=== PATIENT | male | born 1945 | race Caucasian/White ===

== ENCOUNTER 2018-10-23 08:11 | Day surgery (SDC) | payer MEDICARE, OTHER, SELFPAY ==
--- NOTE | 2018-10-23 | PATH_ITS ---
[facility] Accession Number: [id number] . 01 Material submitted: . PART A: cecum - CECUM NEAR APPENDICEAL OPENING PART B: rectum - RECTUM NEAR THE ANUS . 02 Diagnosis: A. Biopsy, Polyp, Cecum Near Appendiceal Opening: Sessile serrated adenoma involving single biopsy fragment. . B. Biopsy, Rectum Near Anus: Hyperplastic polyp involving multiple biopsy fragments. MRV/10/26/2018 . 02 Electronically signed: . Syd Adams MD, Pathologist NPI- [id number] . 01 Gross description: . Part A: CECUM NEAR APPENDICEAL OPENING: Received in formalin are 4 fragment(s) of burgess, soft tissue measuring 0.1 x 0.1 x 0.1 cm to 0.3 x 0.2 x 0.2 cm which is entirely submitted and submitted entirely in 1 cassette(s) Part B: RECTUM NEAR THE ANUS: Received in formalin are multiple fragment(s) of burgess, soft tissue measuring 0.2 x 0.2 x 0.2 cm to 0.4 x 0.4 x 0.3 cm which is entirely submitted and submitted entirely in 1 cassette(s) /DMC /DMC . 02 Pathologist provided ICD-10: D12.0 . 02 CPT . 484673, 318322 Performed at: 01 [facility] [address], [place], [place] [id number] MD Sanjeev Keene MD Phone: [phone] Performed at: 02 [facility] [address] [place], [place] [id number] MD Jeannette Selby MD Phone: [phone]
[2018-10-23 08:58] VITALS: BP 146/80; PULSE 72; RESP 16; TEMP 36.8; O2SAT 97; BMI 33.5
[2018-10-23] MEDS: SODIUM CHLORIDE 0.9% 1,000 ML 200 ML IV (09:05)
--- NOTE | 2018-10-23 10:15 | PM.HP.1 ---
History of Present Illness Date Patient Seen: 10/23/18 Time Patient Seen: 10:03 Chief complaint: [id number] Narrative: Patient is a gentleman here for screening colonoscopy. Last exam was 5 years ago. He had a polyp removed at that time. Patient History Social History household members: spouse Family & Social History Social History: household members spouse Meds Home Medications Medication Instructions Recorded Confirmed Type benzonatate [Tessalon Perles] 100 mg PO TID #30 cap 07/27/17 Rx oseltamivir [Tamiflu] 75 mg PO BID #10 cap 07/27/17 Rx Allergies Allergy/AdvReac Type Severity Reaction Status Date / Time No Known Allergies Allergy Uncoded 10/08/17 12:53 Review of Systems Review of Systems All systems reviewed & are unremarkable except as noted in HPI and below Exam Vital Signs (past 8 hours): - 10/23/18 08:58 Temperature 98.3 F Pulse Rate 72 Respiratory Rate 16 Blood Pressure 146/80 H Pulse Oximetry 97 Oxygen Delivery Method Room Air Narrative Exam Narrative: Pleasant cooperative patient no apparent distress. Lungs are clear to auscultation. No rales or rhonchi. Heart regular rate and rhythm no murmur gallop. Abdomen is soft nontender without mass. No obvious hernias. Patient is alert and oriented x3. Assessment & Plan Assessment & Plan narrative: The patient for a screening colonoscopy. I have discussed the procedure with them. Risks of bleeding, perforation which would necessitate major operation, failure to find remove all lesions, the potential tattoo were all discussed. All questions were answered. They wished to proceed.
--- NOTE | 2018-10-23 10:18 | PM.PREOP ---
Pre-operative Note Interval Note History & Physical reviewed/Exam performed by Physician: Yes Changes to H&P: Yes H&P completed within 30 days and has changed as indicated here:: Take slips in a spring for hypertension and medication for elevated cholesterol ASA Class (for procedural sedation): II
[2018-10-23] MEDS: MIDAZOLAM 5 MG/5 ML VIAL IV (10:45)
[2018-10-23] MEDS: fentaNYL 250 MCG/5 ML INJ IV (10:46)
[2018-10-23 10:51] VITALS: BP 129/81; PULSE 80; RESP 20; TEMP 36.9; O2SAT 95
--- NOTE | 2018-10-23 10:53 | P.OP.ENDO_ITS ---
Operative Date/Time/Diagnoses Date of procedure: 10/23/18 Time of procedure: 10:47 Pre-op diagnosis: History of polyps. Last exam 5 years ago. Post-op diagnosis: same (Polyps. Diverticulosis.) Procedure & Clinicians Study performed: Colonoscopy with cold biopsy Same procedure as scheduled: Yes Indications: Screening Surgeon: Duran Zambrano Procedure Notes SCOAP/Timeout: Performed Procedure in detail: The patient was placed in the left lateral decubitus position and underwent IV sedation directed by the surgeon consisting of fentanyl and Versed. Digital exam was remarkable for increased sphincter tone. The scope was inserted and advanced through the rectum into the sigmoid, descending, transverse, and ascending colon. There were fairly significant number of diverticuli seen throughout the colon.. The cecum was reached identified by the ileocecal valve and the appendiceal opening. The ileocecal valve was successfully cannulated. The terminal ileum was normal in appearance. There were 2 very small polyps in the cecum. One was adjacent to in 1 was slightly into the opening of the appendix. The scope was then gradually brought out. One additional Polyp was found at about a cm inside the anal verge seen on retroflexed view. this was repeatedly biopsied and removed.. The scope was removed and the patient tolerated the procedure well. the prep was very good. Scope withdrawal time: 7.5 min excludes bx time Sedation minutes: 27 Findings: diverticulosis (Throughout the colon) and polyp (Cecum a near anal robert ge) Specimen(s): other (Polyps) Complications: none Recommendations: Colonscopy in 5 years Follow up: as needed Disposition: PACU
[2018-10-23 10:56] VITALS: BP 142/83; PULSE 80; RESP 14; O2SAT 95
[2018-10-23 10:58] VITALS: BP 142/83; PULSE 76; RESP 16; TEMP 36.6; O2SAT 95
[2018-10-23 11:20] VITALS: BP 133/76; PULSE 55; RESP 18; O2SAT 96
== END 2018-10-23 11:31 ==
LOC: ENDO 08:14
PROVIDERS: PCP Family Medicine; Visit Provider Specialist
PROC: 0DJD8ZZ Inspection of Lower Intestinal Tract, Via Natural or Artificial Opening Endoscopic (ICD-10-PCS; CPT 45378; principal; 2018-10-23 09:45)
DX: Z86.010 Personal history of colon polyps (principal); K57.30 Diverticulosis of large intestine without perforation or abscess without bleeding; D12.0 Benign neoplasm of cecum
CPT/HCPCS: 45380; 88305; 99152; 99153; J2250; J3010

== ENCOUNTER → 2019-07-20 11:12 | Outpatient (CLI) | payer MEDICARE, OTHER, SELFPAY ==
--- NOTE | 2019-07-20 | DI.RAD.S_ITS ---
PROCEDURE: XR HAND RT MIN 3V INDICATIONS: RIGHT HAND PAIN TECHNIQUE: 3 views of the hand(s) acquired. COMPARISON: None. FINDINGS: Bones: Small 1-2 mm osseous fragment seen at the base of the middle phalanx of the little finger, possibly cortical fracture fragment. No radiopaque foreign body is seen. Technically this finding age indeterminate. Background diffuse interphalangeal joint degeneration. First CMC and triscaphe joint degeneration Soft tissues: No suspicious soft tissue calcifications. IMPRESSION: Small osseous fragment seen at the PIP joint of the little finger (in the area of reported pain). This could represent small cortical fracture fragment. Confirmation with followup radiographs in 10 days to assess for healing sclerosis could be performed as clinically warranted. No radiopaque foreign body identified Dictated by: Alex Ruiz M.D. on 07/20/2019 at 13:21 Approved by: Alex Ruiz M.D. on 07/20/2019 at 13:24
== END ==
PROVIDERS: PCP Family Medicine; Visit Provider Family Medicine
DX: M79.641 Pain in right hand (principal)
CPT/HCPCS: 73130

== ENCOUNTER → 2019-08-03 11:06 | Outpatient (CLI) | payer MEDICARE, OTHER, SELFPAY ==
--- NOTE | 2019-08-03 | DI.RAD.S_ITS ---
PROCEDURE: XR HAND RT MIN 3V INDICATIONS: RT 5TH FINGER PAIN TECHNIQUE: 3 views of the hand(s) acquired. COMPARISON: [facility], CR, XR HAND RT MIN 3V, 07/20/2019, 11:18. FINDINGS: Bones: No previously unrecognized fractures or dislocations. The small apparent avulsion fragment at the lateral margin of the base of the fifth middle phalanx shows no evidence of osseous. Carpal bones are normally aligned. No suspicious bony lesions. Soft tissues: No suspicious soft tissue calcifications. IMPRESSION: The very small bone fragment abutting the fifth proximal interphalangeal joint laterally shows no osseous union to the adjacent articular margin. No new injury is identified. Dictated by: Franco Love M.D. on 08/03/2019 at 12:03 Approved by: Franco Love M.D. on 08/03/2019 at 12:05
== END ==
PROVIDERS: PCP Family Medicine; Referring Provider Family Medicine; Visit Provider Family Medicine
DX: M79.644 Pain in right finger(s) (principal)
CPT/HCPCS: 73130

== ENCOUNTER → 2019-10-08 12:30 | Outpatient (CLI) | payer MEDICARE, OTHER, SELFPAY ==
--- NOTE | 2019-10-08 | DI.MRI.S_ITS ---
PROCEDURE: MR STROKE Pre- and post-contrast brain MRI, non-contrast brain MR angiogram, pre- and postcontrast neck MR angiogram INDICATIONS: Dizziness and giddiness TECHNIQUE: Brain: Noncontrast axial T1 spin echo, axial T2 fast spin echo, sagittal and axial FLAIR, coronal T2 fast spin echo, axial gradient echo, axial diffusion and ADC through the brain. After the administration of contrast, axial 3D VIBE of the cranial vasculature and brain. Brain MRA: Non-contrast 3-D time of flight MR angiogram, with multiple vdzjtac-zdlhdbpqi-uliesqwghv (MIP) reformats performed. Neck MRA: Axial and sagittal TruFISP through the neck. Coronal dynamic MR angiogram during administration of contrast in the arterial and venous phases, with 3-dimenstional himlctp-baeyvypeb-nzdalrmqte (MIP) reformats constructed from subtraction images. COMPARISON: None. FINDINGS: Image quality: Excellent. BRAIN: CSF spaces: Ventricles are normal in size and shape. Basal cisterns are patent. No extra-axial fluid collections. Brain: No intracranial bleeds or mass effects. Benton-white matter interface is normal. Diffusion weighted images show no acute ischemic insults. Brainstem appears normal. Normal intravascular flow voids are present. No abnormal intracranial enhancement. Skull and face: Calvarial marrow signal is normal. Orbits appear normal. Sinuses: Sinuses and mastoids are clear. BRAIN MR ANGIOGRAM: Anterior circulation: Intracranial internal carotid arteries are normal in size and enhancement. The flow within the paired anterior cerebral arteries is normal and symmetric. The flow within the middle cerebral arteries is normal and symmetric. The anterior communicating artery is seen. No stenoses, occlusions, or aneurysms. Posterior circulation: The visualized portions of the vertebral arteries demonstrate normal caliber, and join to form a normal appearing basilar artery. The flow within the posterior cerebral arteries is normal and symmetric. No stenoses, occlusions, or aneurysms. NECK MR ANGIOGRAM: Motion artifacts in upper thorax. Carotids: Great vessels demonstrate a conventional anatomy as they arise from the aortic arch. The origins of the common carotid arteries appear patent. The calibers and courses of both common carotid arteries are normal. The bifurcation regions appear normal bilaterally. The internal carotid arteries demonstrate normal course. There is a saccular aneurysm in the distal left cervical internal carotid artery measuring 5 mm arising from the medial wall. The right internal carotid artery is normal in caliber. Posterior circulation: The origins of the vertebral arteries appear patent. More superior portions of both vertebral arteries demonstrate normal course and caliber, and join to form a normal appearing basilar artery. Miscellaneous: Subclavian arteries appear patent. Pre-contrast images through the neck show no soft tissue abnormalities. IMPRESSION: BRAIN MRI: 1. No acute intracranial abnormalities. BRAIN MR ANGIOGRAM: No high-grade stenosis or occlusion in anterior or posterior circulations. NECK MR ANGIOGRAM: 1. No high-grade stenosis or occlusion in cervical carotid arteries or vertebral arteries. 2. 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 Dictated by: Augustin Eason M.D. on 10/08/2019 at 14:11 Approved by: Augustin Eason M.D. on 10/08/2019 at 15:10
--- NOTE | 2019-10-08 | DI.RAD.S_ITS ---
PROCEDURE: XR EYE FOREIGN BODY LT INDICATIONS: PRE MRI SCREEN TECHNIQUE: A single view of the orbits was acquired. COMPARISON: None. FINDINGS: Soft tissues: No metallic foreign bodies are visualized around the orbits. Bones: Bony structures appear unremarkable. Visualized sinuses appear clear. IMPRESSION: No radiopaque foreign body is seen in bilateral orbits. Dictated by: Terrance Melvin M.D. on 10/08/2019 at 13:04 Approved by: Terrance Melvin M.D. on 10/08/2019 at 13:05
== END ==
PROVIDERS: PCP Family Medicine; Referring Provider Family Medicine; Visit Provider Family Medicine
DX: I67.1 Cerebral aneurysm, nonruptured (principal); R42 Dizziness and giddiness; Z13.5 Encounter for screening for eye and ear disorders
CPT/HCPCS: 70030; 70548; 70553; A9579

== ENCOUNTER → 2019-12-20 11:38 | Outpatient (CLI) | payer MEDICARE, OTHER, SELFPAY ==
[2019-12-20 13:35] LABS: Blood Urea Nitrogen 14 mg/dL (9-20); Estimated Glomerular Filt Rate > 60.0 mL/min (>60)
== END ==
PROVIDERS: PCP Family Medicine; Referring Provider Family Medicine; Visit Provider Family Medicine
DX: R22.1 Localized swelling, mass and lump, neck (principal)
CPT/HCPCS: 36415; 82565; 84520

== ENCOUNTER → 2019-12-21 14:06 | Outpatient (CLI) | payer MEDICARE, OTHER, SELFPAY ==
--- NOTE | 2019-12-21 | DI.CT.S_ITS ---
PROCEDURE: CT SOFT TISSUE NECK W CON INDICATIONS: Localized swelling, mass and lump, neck TECHNIQUE: After the administration of intravenous contrast, 3.0 mm axial sections acquired from the sella to the aortic arch. Additional oblique axial 3.0 mm sections acquired through the pharynx. 3 mm thick coronal and sagittal reformats were generated. For radiation dose reduction, the following was used: automated exposure control. COMPARISON: None. FINDINGS: Image quality: Excellent. Lymph nodes: Scrutiny is given to the area of clinical concern as marked dilatation involving the right lower neck laterally, as on series 2 image 53. At this site, there is a mildly prominent lymph node seen, measuring 14 x 11 mm. Portal and prominent lymph nodes are seen elsewhere within the neck. Vessels: Visualized vasculature appears patent. Neck spaces: The oropharynx, nasopharynx, and pharynx demonstrate no mucosal lesions. The vocal cords, false vocal cords, pyriform sinuses, epiglottis, vallecula, and tongue base all appear normal. Extramucosal spaces appear unremarkable. Glands: The parotid and submandibular glands appear normal. Thyroid gland is prominent and heterogeneous. Miscellaneous: Visualized brain and orbits appear normal. Lung apices appear clear. Superficial soft tissues appear normal. Bones: No suspicious bony lesions. Visualized sinuses and mastoids appear unremarkable. Relatively prominent lower cervical spine degenerative changes are seen, with moderate to severe disc space narrowing at C5-C6 and C6. Bridging anterior osteophytes are seen at C5-T1. IMPRESSION: There is a mildly enlarged lymph node seen at the area of clinical concern. As clinically appropriate, please consider an ultrasound guided percutaneous biopsy. No primary masses are detected. A heterogeneous thyroid is seen. If clinically appropriate, please consider a followup thyroid ultrasound for further evaluation. Cervical spine degenerative changes are seen. Dictated by: Patrick Polanco M.D. on 12/21/2019 at 14:02 Approved by: Patrick Polanco M.D. on 12/21/2019 at 14:06
== END ==
PROVIDERS: PCP Family Medicine; Referring Provider Family Medicine; Visit Provider Family Medicine
DX: R59.0 Localized enlarged lymph nodes (principal); M47.812 Spondylosis without myelopathy or radiculopathy, cervical region
CPT/HCPCS: 70491

== ENCOUNTER → 2019-12-24 09:39 | Outpatient (CLI) | payer MEDICARE, OTHER, SELFPAY ==
--- NOTE | 2019-12-24 | DI.US.S_ITS ---
PROCEDURE: US THYROID INDICATIONS: NODULE TECHNIQUE: Real-time scanning was performed of the thyroid gland, with image documentation. COMPARISON: [facility], CT, CT SOFT TISSUE NECK W CON, 12/21/2019, 14:13. [facility], US, THYROID, 08/04/2015, 8:38. FINDINGS: The thyroid is enlarged and demonstrates generalized heterogeneity. Right: Thyroid lobe measures 8.3 x 2.3 x 3.5 cm. Left: Thyroid lobe measures 7.9 x 3 x 3.8 cm. Isthmus: 7 mm thick. Nodule number: 1 Location: Right lateral superior/mid Size: 1 x 0.8 x 0.7 cm, previously measuring 0.8 x 0.8 x 0.9 cm. Composition: Predominantly cystic Echogenicity: Hypoechoic Shape: wider than tall. Margins: Smooth Echogenic foci: None Total points: 3 ACR TI-RADS category: 3 Nodule number: 2 Location: Right lateral mid/inferior Size: 2.4 x 0.9 x 2.4 cm, previously measuring 1.2 x 1.2 x 1.5 cm. Composition: Predominantly solid Echogenicity: Hypoechoic Shape: wider than tall. Margins: Smooth Echogenic foci: None Total points: 4 ACR TI-RADS category: 4 Nodule number: 3 Location: Right anterior Size: 1.9 x 1.2 x 1.9 cm, not previously identified. Composition: Predominantly solid Echogenicity: Hypoechoic Shape: wider than tall. Margins: Smooth Echogenic foci: None Total points: 4 ACR TI-RADS category: 4 Nodule number: 4 Location: Left superior/medial Size: 1.3 x 0.7 x 1.6 cm, not previously identified Composition: Predominantly solid Echogenicity: Isoechoic Shape: wider than tall. Margins: Smooth Echogenic foci: None Total points: 3 ACR TI-RADS category: 3 IMPRESSION: The thyroid is enlarged and demonstrates a generalized heterogeneous appearance. By published criteria, ultrasound-guided biopsy would be recommended for the 2 largest nodules within the right thyroid. ACR TI-RADS definitions and recommendations: TI-RADS 1 (benign): 0 points. FNA not needed. TI-RADS 2 (not suspicious): 2 points. FNA not needed. TI-RADS 3 (mildly suspicious): 3 points. * FNA if 2.5 cm or larger, follow up if 1.5 cm or larger (at 1, 3, and 5 years). TI-RADS 4 (moderately suspicious): 4-6 points. * FNA if 1.5 cm or larger, follow up if 1 cm or larger (at 1, 2, 3, and 5 years). TI-RADS 5 (highly suspicious): 7 points or more. * FNA if 1 cm or larger, follow up if 0.5 cm or larger (every year for 5 years). Dictated by: Patrick Polanco M.D. on 12/24/2019 at 10:34 Approved by: Patrick Polanco M.D. on 12/24/2019 at 10:40
== END ==
PROVIDERS: PCP Family Medicine; Referring Provider Family Medicine; Visit Provider Family Medicine
DX: E04.2 Nontoxic multinodular goiter (principal)
CPT/HCPCS: 76536

== ENCOUNTER → 2020-02-11 12:34 | Outpatient (CLI) | payer MEDICARE, OTHER, SELFPAY ==
--- NOTE | 2020-02-11 | PATH_ITS ---
Note [facility] Accession Number: [id number] TESTS RESULT FLAG UNITS REF RANGE LAB Clinician Provided Cytology Information No. of containers..02 Previously Prepared Cytology Slide 35 Unknown Storage/container code(s) 01 RIGHT THYROID NODULE DIAGNOSIS: 01 RIGHT THYROID NODULE, FINE NEEDLE ASPIRATION. NEGATIVE FOR MALIGNANT CELLS. ADEQUATE FOR EVALUATION. FOLLICULAR GROUPS ARE PRESENT. BENIGN FOLLICULAR (GOITEROUS) NODULE ([place] CATEGORY II), SEE COMMENT. COMMENT: MICROSCOPIC EXAMINATION REVEALS A MILDLY CELLULAR ASPIRATE, COMPOSED OF COLLOID, FOLLICULAR GROUPS WITHOUT SIGNIFICANT CYTOLOGIC OR ARCHITECTURAL ATYPIA, AND BACKGROUND MACROPHAGES. THESE FINDINGS SUPPORT A BENIGN FOLLICULAR (GOITEROUS) NODULE. CORRELATION WITH CLINICAL AND RADIOGRAPHIC FINDINGS IS RECOMMENDED. ACCORDING TO THE [place] REPORTING SYSTEM FOR THYROID CYTOPATHOLOGY, THE RISK OF MALIGNANCY IN THE CATEGORY BENIGN-CATEGORY II IS 0-3%; THEREFORE RECOMMEND CONTINUED ULTRASOUND SURVEILLANCE WITH REPEAT FNA IF THE NODULE SIGNIFICANTLY INCREASES IN SIZE. Pathologist ICD10: 01 E04.2 01 FINDINGS: The thyroid is enlarged and demonstrates generalized heterogeneity. Right: Thyroid lobe measures 8.3 x 2.3 x 3.5 cm. Left: Thyroid lobe measures 7.9 x 3 x 3.8 cm. Isthmus: 7 mm thick. Nodule number: 1 Location: Right lateral superior/mid Size: 1 x 0.8 x 0.7 cm, previously measuring 0.8 x 0.8 x 0.9 cm. Composition: Predominantly cystic Echogenicity: Hypoechoic Shape: wider than tall. Margins: Smooth Echogenic foci: None Total points: 3 ACR TI-RADS category: 3 Nodule number: 2 Location: Right lateral mid/inferior Size: 2.4 x 0.9 x 2.4 cm, previously measuring 1.2 x 1.2 x 1.5 cm. Composition: Predominantly solid Echogenicity: Hypoechoic Shape: wider than tall. Margins: Smooth Echogenic foci: None Total points: 4 ACR TI-RADS category: 4 Nodule number: 3 Location: Right anterior Size: 1.9 x 1.2 x 1.9 cm, not previously identified. Composition: Predominantly solid Echogenicity: Hypoechoic Shape: wider than tall. Margins: Smooth Echogenic foci: None Total points: 4 ACR TI-RADS category: 4 Nodule number: 4 Location: Left superior/medial Size: 1.3 x 0.7 x 1.6 cm, not previously identified Composition: Predominantly solid Echogenicity: Isoechoic Shape: wider than tall. Margins: Smooth Echogenic foci: None Total points: 3 ACR TI-RADS category: 3 IMPRESSION: The thyroid is enlarged and demonstrates a generalized heterogeneous appearance. By published criteria, ultrasound-guided biopsy would be recommended for the 2 largest nodules within the right thyroid. 01 Femrin Higuera MD, Pathologist NPI- [id number] Florencio Olson, Leaf Coverer ([facility]) 01 30 CC, PINK, CLEAR RECIEVED: IN CYTOLYT WITH 6 ALCOHOL FIXED AND 6 QUICK STAINED SLIDES ALSO 1 RNA VIAL WAS RECEIVED FOR FURTHER TESTING. /VDU 02/14/2020 0828 Local FLAG LEGEND: L-Low Normal,H-High Normal,LL-Alert Low,HH-Alert High <-Panic Low,>-Panic High,A-Abnormal,AA-Critical Abnormal Performed at: 01 =Z [facility] [address], [place] [address] Sanjeev Keene MD, Performed at: 01 [facility] [address], [place], [place] [id number] MD Sanjeev Keene MD Phone: [phone]
--- NOTE | 2020-02-11 | DI.US.S_ITS ---
PROCEDURE: US FINE NEEDLE ASPIRATION INDICATIONS: RT NODULE TECHNIQUE: The indications, alternatives, benefits, risks, and complications of the procedure were explained to the patient. Written informed consent was obtained and placed in the chart. The thyroid region was examined sonographically and a site was chosen for ultrasound guided percutaneous sampling. The skin was prepared and draped in the usual fashion, and anesthetized with 1% lidocaine infiltrated from the skin down to the thyroid gland. Multiple passes were then performed, with contents emptied into an appropriate pathology specimen container. A bandage was applied to the area of access at completion of the study. COMPARISON: [facility], US, US THYROID, 12/24/2019, 10:15. FINDINGS: Location(s) of lesion(s) sampled: Right inferior nodule (#2 on previous US report) [place]: 25 gauge hypodermic needles. Number of passes: 6 Medications: 1% lidocaine for local anaesthesia. Complications: None. IMPRESSION: Successful ultrasound-guided thyroid nodule fine needle aspiration of the right infeior noudle (#2). The cytology results are pending. Please see chart below for management recommendations based on cytology results. Note: Nodule #3 is too infeior (below the clavicle) to assess and ultrasound guidance (below the clavicle). Recommend continued ultrasound follow-up. [facility] [place] [facility] ReportingRecommendationsNon-diagnostic* Repeat US-guided FNA, with on-site cytology evaluation if possible. * Repeated non-diagnostic nodules without high suspicion US features: close observation vs surgical consult. * Consider surgery if nodule has high suspicion US features, grows >20% in 2 dimensions on followup, or patient has clinical risk factors for malignancy. Benign* If nodule has high suspicion US features: repeat US and FNA within 12 months. * If nodule has low to intermediate suspicion US features: repeat US at 12-24 months. If nodule grows (20% increase in at least 2 dimensions, with minimal increase of 2 mm or >50% change in volume), or development of new suspicious US features, then repeat FNA or continue followup. * If nodule has very low suspicion US features: followup US at >24 months. Atypia of undetermined significance, follicular lesion of undetermined significanceRepeat FNA, molecular testing, followup US, or surgical consult.Follicular neoplasm, suspicious for follicular neoplasmSurgical consult; also consider molecular testing. Suspicious for malignancySurgical consult.MalignantSurgical consult. Dictated by: Augustin Eason M.D. on 02/11/2020 at 14:33 Approved by: Augustin Eason M.D. on 02/11/2020 at 14:36
== END ==
PROVIDERS: PCP Family Medicine; Referring Provider Family Medicine; Visit Provider Family Medicine
DX: E04.2 Nontoxic multinodular goiter (principal)
CPT/HCPCS: 10005

== ENCOUNTER → 2021-05-16 09:14 | Outpatient (CLI) | payer MEDICARE, OTHER, SELFPAY ==
--- NOTE | 2021-05-16 | DI.US.S_ITS ---
PROCEDURE: US THYROID INDICATIONS: NONTOXIC MULTINODULAR GOITER TECHNIQUE: Real-time scanning was performed of the thyroid gland, with image documentation. COMPARISON: [facility], US, US THYROID, 12/24/2019, 10:15. FINDINGS: Right: Thyroid lobe measures 6.7 x 3.4 cm, and is diffusely heterogeneous in echotexture. Left: Thyroid lobe measures 6.4 x 3.2 x 2.0 cm, and is diffusely heterogeneous in echotexture. Isthmus: 9.0 mm thick. Nodule number: 1 Location: Right mid to superior Size: Unchanged 1.2 x 0.8 x 0.6 cm. Composition: Solid Echogenicity: Hypoechoic Shape: wider than tall. Margins: Smooth Echogenic foci: None Total points: 4 ACR TI-RADS category: Moderately suspicious Nodule number: 2 Location: Right mid Size: 1.0 x 0.9 x 0.7 cm. Composition: Predominantly cystic Echogenicity: Predominantly anechoic Shape: wider than tall. Margins: Smooth Echogenic foci: None Total points: 0 ACR TI-RADS category: Benign Nodule number: 3 Location: Right mid inferior Size: Unchanged 2.5 x 1.2 x 1.1 cm. Composition: Mixed cystic and solid Echogenicity: Heterogeneous Shape: wider than tall. Margins: Lobulated Echogenic foci: None Total points: 4 ACR TI-RADS category: Moderately suspicious Nodule number: 4 Location: Right inferior Size: Unchanged 2.1 x 1.1 x 0.9 cm. Composition: Mixed cystic and solid Echogenicity: Heterogeneous Shape: wider than tall. Margins: Smooth of Echogenic foci: Internal punctate echogenic foci Total points: 5 ACR TI-RADS category: Moderately suspicious Nodule number: 5 Location: Left superior Size: Unchanged 1.3 x 1.3 x 0.8 cm. Composition: Solid Echogenicity: Hypoechoic Shape: wider than tall. Margins: Smooth Echogenic foci: None Total points: 4 ACR TI-RADS category: Moderately suspicious IMPRESSION: New small right thyroid nodule; otherwise stable appearance of bilateral thyroid nodules. Recommend continued followup ultrasound as detailed below. ACR TI-RADS definitions and recommendations: TI-RADS 1 (benign): 0 points. FNA not needed. TI-RADS 2 (not suspicious): 2 points. FNA not needed. TI-RADS 3 (mildly suspicious): 3 points. * FNA if 2.5 cm or larger, follow up if 1.5 cm or larger (at 1, 3, and 5 years). TI-RADS 4 (moderately suspicious): 4-6 points. * FNA if 1.5 cm or larger, follow up if 1 cm or larger (at 1, 2, 3, and 5 years). TI-RADS 5 (highly suspicious): 7 points or more. * FNA if 1 cm or larger, follow up if 0.5 cm or larger (every year for 5 years). Dictated by: Carlos Arora [facility] Interpreted: Terrance Melvin MD on 05/17/2021 at 10:21 Transcribed by: MICHAEL on 05/17/2021 at 10:30 Approved by: Terrance Melvin M.D. on 05/17/2021 at 11:49
== END ==
PROVIDERS: PCP Family Medicine; Referring Provider Family Medicine; Visit Provider Family Medicine
DX: E04.2 Nontoxic multinodular goiter (principal)
CPT/HCPCS: 76536

== ENCOUNTER → 2021-05-30 13:10 | Outpatient (CLI) | payer MEDICARE, OTHER, SELFPAY ==
--- NOTE | 2021-05-30 13:11 | DI.MRI.S_ITS ---
PROCEDURE: MR FOOT RT WO CON INDICATIONS: Pain in right foot TECHNIQUE: Noncontrast sagittal T1 spin echo and T2 fast spin echo with fat saturation, long-axis T1 spin echo and T2 fast spin echo with fat saturation, short-axis T1 spin echo and T2 fast spin echo with fat saturation through the forefoot. COMPARISON: None. FINDINGS: Image quality: Excellent. Bones and joints: Mild midfoot and hindfoot joint osteoarthritic changes are seen. No fracture or dislocation. No suspicious intraosseous lesions. No osteochondral injury of talar dome. Well-defined plantar enthesophyte is noted with mild edema involving plantar aspect of calcaneus. No discrete fracture line is noted. Soft tissues: Mildly thickened posterior tibialis tendon is seen with small amount of fluid distending tendon sheath suggestive of low-grade tenosynovitis. Rest of the flexor tendons are intact. Extensor and peroneus tendons are intact. Deltoid ligament and spring ligament complex are grossly intact. Lateral ankle ligaments are grossly intact. Achilles tendon is intact. Thickened plantar fascia at its plantar calcaneal insertion is seen suggestive of low-grade plantar fasciitis. IMPRESSION: 1. Well-defined plantar calcaneal enthesophyte with thickened medial cord of plantar fascia at its calcaneal insertion consistent with low to moderate grade plantar fasciitis. 2. Achilles tendon is intact. Low-grade tenosynovitis involving posterior tibialis tendon. Rest of the ankle tendons are intact. 3. No fracture or dislocation. Mild midfoot and hindfoot joint osteoarthritis. Dictated by: Terrance Melvin M.D. on 05/30/2021 at 15:05 Approved by: Terrance Melvin M.D. on 05/30/2021 at 15:43
== END ==
PROVIDERS: PCP Family Medicine; Referring Provider Podiatrist; Visit Provider Podiatrist
DX: M19.071 Primary osteoarthritis, right ankle and foot (principal); M65.871 Other synovitis and tenosynovitis, right ankle and foot; M77.31 Calcaneal spur, right foot; M72.2 Plantar fascial fibromatosis; M79.671 Pain in right foot
CPT/HCPCS: 73718

== ENCOUNTER → 2022-01-14 11:42 | Outpatient (CLI) | payer MEDICARE, OTHER, SELFPAY ==
--- NOTE | 2022-01-14 11:45 | DI.RAD.S_ITS ---
PROCEDURE: XR LUMBAR SPINE 2-3V INDICATIONS: Radiculopathy, lumbar region TECHNIQUE: 3 views of the lumbar spine were acquired. COMPARISON: None. FINDINGS: Bones: 5 [id number] vertebrae are present. There is normal bony alignment. No vertebral body compression fractures. No suspicious bony lesions. Disc space narrowing and hypertrophic facet joints noted particularly in the lower lumbar spine Soft tissues: Overlying bowel gas pattern is normal. No suspicious soft tissue calcifications. 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 on 01/14/2022 at 18:26
== END ==
PROVIDERS: PCP Family Medicine; Referring Provider Family Medicine; Visit Provider Family Medicine
DX: M54.16 Radiculopathy, lumbar region (principal); M51.36 Other intervertebral disc degeneration, lumbar region; M47.816 Spondylosis without myelopathy or radiculopathy, lumbar region
CPT/HCPCS: 72100

== ENCOUNTER 2022-06-22 07:18 | Emergency (ER) | payer MEDICARE, OTHER, SELFPAY ==
[2022-06-22] VITALS (16 sets, daily range): BP systolic 122–159; BP diastolic 56–70; PULSE 51–76; RESP 15; TEMP 36.7; O2SAT 94–100; BMI 32.8
--- NOTE | 2022-06-22 08:10 | ED_ITS ---
HPI - URI/Sore Throat General Chief Complaint: Upper Respiratory Symptoms Stated Complaint: sore throat/sob Time Seen by Provider: 06/22/22 08:05 Source: patient and family Mode of arrival: Ambulatory Limitations: no limitations History of Present Illness HPI Narrative: This is a 77-year-old male with history of BPH. Patient comes with complaint of sore throat for 5 days, nasal congestion, nonproductive cough, patient complains of left ear pain as well, he has been afebrile, he is had a little bit of headache on the left side. He denies any chest pain or pressure he is felt a little short of breath, no nausea or vomiting, no diarrhea constipation, no urinary symptoms. Patient states he tried Tylenol at 11:00 a.m. last night without much change. 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 No known drug allergies. His spouse who is in the room has also started to have similar symptoms develop in the last 2 days. Related Data Previous Rx's Medication Instructions Recorded benzonatate 100 mg capsule 100 mg PO TID #30 caps 07/27/17 (Tessalon Perles) oseltamivir 75 mg capsule (Tamiflu) 75 mg PO BID #10 caps 07/27/17 Allergies Allergy/AdvReac Type Severity Reaction Status Date / Time No Known Drug Allergies Allergy Verified 10/23/18 10:47 Review of Systems Review of Systems ROS Unobtainable: All systems reviewed & are unremarkable except as noted in HPI and below Patient History Social History household members: spouse Smoking Status: Never smoker Smoking Status: Never smoker Exam Narrative Exam Narrative: GEN: well nourished, well appearing male, alert and oriented x 3, patient appears to be in mild distress. HEENT: Atraumatic, pupils are equal round reactive to light, extraocular movements are intact, nares are clear, TMs are retracted, clear with no fluid, there is no conjunctival pallor. Throat is clear without any exudates, erythema, there is no tonsillar enlargement or uvular deviation, mild submandibular lymphadenopathy. No swelling, full range of motion of the neck nontender to palpation. Patient is slightly hoarse, no difficulty swallowing secretions. HEART: Regular rate and rhythm without murmur, clicks, rubs. LUNGS:Lungs clear to auscultation, no wheezes, rales, crackles, chest moves symmetrically ABD:bowel sounds normal, soft, non-tender, no guarding, rebound, rigidity, no masses noted, no hepatosplenomegaly :No CVA tenderness MSCL: Non-tender, no muscle atrophy, muscles strength 5/5 upper and lower extremities, full range of motion, normal gait NEURO:CN 2-12 intact, sensation normal SKIN: No rash, erythema or other skin changes noted Initial Vital Signs Initial Vital Signs: Vital Signs Pulse Rate 74 06/22/22 07:26 Blood Pressure 149/67 H 06/22/22 07:26 Pulse Oximetry 98 06/22/22 07:26 Course Orders Ordered: ED Orders 06/22/22 08:00 Covid-19 + FLU A/B + RSV - PCR Stat Vital Signs Vital signs: Vital Signs - 8 hr 06/22/22 07:34 06/22/22 07:26 06/22/22 07:26 Temperature 98.0 F Pulse Rate 71 74 Respiratory Rate 15 Blood Pressure 149/67 H 149/67 H Pulse Oximetry 100 98 Oxygen Delivery Method Room Air 06/22/22 07:27 06/22/22 07:31 06/22/22 07:32 Temperature Pulse Rate 69 70 Respiratory Rate Blood Pressure 159/70 H Pulse Oximetry 98 98 Oxygen Delivery Method 06/22/22 07:56 06/22/22 08:00 06/22/22 08:01 Temperature Pulse Rate 63 76 Respiratory Rate Blood Pressure 122/56 L Pulse Oximetry 95 96 Oxygen Delivery Method 06/22/22 08:01 06/22/22 08:15 06/22/22 08:30 Temperature Pulse Rate 63 67 Respiratory Rate Blood Pressure 136/66 Pulse Oximetry 96 97 Oxygen Delivery Method 06/22/22 08:30 06/22/22 08:45 06/22/22 09:00 Temperature Pulse Rate 57 L 53 L Respiratory Rate Blood Pressure 134/69 Pulse Oximetry 95 94 Oxygen Delivery Method 06/22/22 09:00 06/22/22 09:15 06/22/22 09:30 Temperature Pulse Rate 58 L 55 L Respiratory Rate Blood Pressure 128/60 Pulse Oximetry 95 95 Oxygen Delivery Method 06/22/22 09:30 06/22/22 09:45 Temperature Pulse Rate 55 L 51 L Respiratory Rate Blood Pressure Pulse Oximetry 95 95 Oxygen Delivery Method MDM - URI/Sore Throat Lab Data Labs: Lab Results 06/22/22 Range/Units 08:00 SARS-CoV-2 (PCR) Negative (Negative) Influenza A (RT-PCR) Flu a positive H (NEGATIVE) Influenza B (RT-PCR) Flu b negative (NEGATIVE) RSV (PCR) Negative (Negative) MDM Narrative Medical decision making narrative: 77-year-old male does not meet center criteria for strep exam is not concerning for bacterial pharyngitis. Suspect upper respiratory viral illness, R SV/COVID/influenza swab shows positive for influenza A Discharge Plan Departure Patient Disposition: Home Clinical Impression: Influenza A Instructions: DI for Influenza -- Adult Activity Restrictions/Additional Instructions: Please follow-up for recheck in the next week if symptoms are not starting to improve. You are positive for influenza A, this is a viral illness that typically last a week to 10 days. You can take Tylenol and/or IV ibuprofen as needed for fevers or sore throat. You may use [id number] cough and cold medication. Please return for rapidly worsening symptoms, new chest pain, shortness of breath, vomiting, new swelling in extremities, swelling of your throat, stridor or high-pitched wheezing, difficulty swallowing her secretions or other new or concerning changes. Prescriptions: No Action oseltamivir [Tamiflu] 75 MG capsule 75 mg PO BID Qty: 10 0RF benzonatate [Tessalon Perles] 100 MG capsule 100 mg PO TID Qty: 30 0RF Referrals: Jose Hartman MD [Primary Care Provider] - Visit Report Forms: Patient Portal/API
[2022-06-22 08:56] LABS: Influenza A - CEPHEID Flu A POSITIVE (NEGATIVE); Influenza B - CEPHEID Flu B NEGATIVE (NEGATIVE); Respiratory Syncytial Virus Negative (Negative)
[2022-06-22 09:41] LABS: COVID-19 CEPHEID 4-PLEX PCR Negative (Negative)
== END 2022-06-22 10:04 | disposition home or self-care (01) ==
PROVIDERS: Emergency Provider Emergency Medicine; PCP Family Medicine
DX: J10.1 Influenza due to other identified influenza virus with other respiratory manifestations (principal); Z20.822 Contact with and (suspected) exposure to COVID-19
CPT/HCPCS: 0241U; 99282

== ENCOUNTER → 2022-06-28 11:31 | Outpatient (CLI) | payer MEDICARE, OTHER, SELFPAY ==
--- NOTE | 2022-06-28 | DI.CT.S_ITS ---
PROCEDURE: CT SOFT TISSUE NECK W CON INDICATIONS: Localized swelling, mass and lump, neck TECHNIQUE: After the administration of intravenous contrast, 3.0 mm axial sections acquired from the sella to the aortic arch. 3 mm thick coronal and sagittal reformats were generated. For radiation dose reduction, the following was used: automated exposure control. COMPARISON: [facility], CT, CT SOFT TISSUE NECK W CON, 12/21/2019, 14:13. FINDINGS: Skull Base: The visualized intracranial contents, skull, and orbits are unremarkable. Visualized paranasal sinuses are clear. Pharynx and Larynx: The nasopharyngeal airway is patent and midline. Parapharyngeal soft tissues including palatine tonsils and base of the tongue are normal. Retropharyngeal space unremarkable. Normal appearance of the false and true vocal cords. Muscles and Fascial Planes: Fascial planes are well maintained. No abscess or mass lesion. Lymph Nodes: Scattered deep cervical nonenlarged lymph nodes christianson similar to the prior Vasculature: Unremarkable. Submandibular and Parotid Glands: The left submandibular gland is slightly asymmetrically enlarged, there is minimal adjacent edema noted. Thyroid: Heterogenous enlarged thyroid is stable from prior Bones: No acute fracture. No osteolytic or blastic lesion is evident. Normal bone mineralization. Multilevel degenerative disc disease and arthropathy appears stable from the prior Lung Apices: The visualized lung apices are clear. Small through meter calcified granuloma noted in the left lung apex laterally, stable IMPRESSION: 1. Minimal asymmetric enlargement of the left submandibular gland could reflect sialoadenitis in the proper clinical setting 2. Stable chronic findings include scattered nonenlarged deep cervical lymph nodes, prominent bulky thyroid, degenerative disc disease and arthropathy Approved by: Kleber Harmon M.D. on 06/28/2022 at 13:33
== END ==
PROVIDERS: PCP Family Medicine; Referring Provider Family Medicine; Visit Provider Family Medicine
DX: R22.1 Localized swelling, mass and lump, neck (principal)
CPT/HCPCS: 70491; Q9967

== ENCOUNTER → 2022-09-02 09:08 | Outpatient (CLI) | payer MEDICARE, SELFPAY ==
--- NOTE | 2022-09-02 | DI.US.S_ITS ---
PROCEDURE: US ABD AORTA ANEURYSM SCREEN INDICATIONS: Cardiovascular screen;Nontoxic multinodular goiter TECHNIQUE: Real time scanning was performed of the aorta and iliac arteries, with image documentation. COMPARISON: None. FINDINGS: Aorta: Proximal aortic diameter measures 2.1 cm. Mid-aorta measures 1.5 cm. Distal aortic diameter is 1.4 cm. Iliac arteries: Right common iliac artery measures 1.0 cm. Left common iliac artery measures 1.1 cm. IMPRESSION: No abdominal aortic aneurys. Dictated by: Augustin Eason M.D. on 09/02/2022 at 12:43 Approved by: Augustin Eason M.D. on 09/02/2022 at 12:44
--- NOTE | 2022-09-02 | DI.NM.S_ITS ---
PROCEDURE: NM UPTAKE AND SCAN RADIOPHARMACEUTICAL: 370 ?Ci I-123 sodium iodide by mouth. INDICATIONS: Cardiovascular screen;Nontoxic multinodular goiter TECHNIQUE: I-123 sodium iodide was administered orally. Anterior neck images were obtained, and iodine uptake by the thyroid gland calculated using insurance underwriter sales's software. COMPARISON: [facility], CT, CT SOFT TISSUE NECK W CON, 06/28/2022, 12:11. FINDINGS: Morphology: The thyroid gland has normal morphology and uniform activity. No 'cold' or 'hot' thyroid nodules are identified. Uptake: 6-hour thyroid uptake is 11.0%; normal ranges are from 6-18%. 24-hour thyroid uptake is 24.3% ; normal ranges are from 10-30%. IMPRESSION: 1. Homogeneous thyroid uptake. No hot or cold thyroid nodules. 2. Normal 6-hour and 24-hour radioactive iodine uptake. Dictated by: Augustin Eason M.D. on 09/03/2022 at 10:39 Approved by: Augustin Eason M.D. on 09/03/2022 at 15:26
== END ==
PROVIDERS: PCP Family Medicine; Referring Provider Family Medicine; Visit Provider Family Medicine
DX: Z13.6 Encounter for screening for cardiovascular disorders (principal); E04.2 Nontoxic multinodular goiter
CPT/HCPCS: 76706; 78014; A9516

== ENCOUNTER → 2023-03-24 08:19 | Outpatient (CLI) | payer MEDICARE, SELFPAY ==
--- NOTE | 2023-03-24 | DI.US.S_ITS ---
PROCEDURE: US THYROID INDICATIONS: THYROID NODULE TECHNIQUE: Real-time scanning was performed of the thyroid gland, with image documentation. COMPARISON: [facility], US, US THYROID, 05/16/2021, 9:25. FINDINGS: Right: Thyroid lobe measures 8.4 x 3.7 x 3.0 cm, larger compared to the most recent prior exam, and is heterogeneous in echotexture. Left: Thyroid lobe measures 8.1 x 3.5 x 2.9 cm, also moderately increased in size, and is heterogeneous in echotexture. Isthmus: 9.3 mm thick. Nodule number: 1 Location: Right superior pole Size: 1.4 x 1.0 x 1.1 cm, previously 1.2 x 0.8 x 1.0 cm. Composition: Mixed cystic and solid Echogenicity: Heterogeneous Shape: wider than tall. Margins: Smooth Echogenic foci: No Total points: 3 ACR TI-RADS category: Mildly suspicious Nodule number: 2 Location: Right mid/lateral lobe no longer seen. This was previously sampled. Nodule number: 3 Location: right inferior pole, previously biopsied Size: 2.4 x 1.3 x 1.0 cm, previously 2.4 x 2.4 x 0.9 cm Composition: Predominantly solid Echogenicity: Hypoechoic Shape: wider than tall. Margins: Lobulated Echogenic foci: Present Total points: 4 ACR TI-RADS category: Moderately suspicious Nodule number: 4 Location: Right lateral inferior, no longer seen Nodule number: 5 Location: Left superior pole Size: 1.2 x 1.3 x 0.8 cm, previously 1.3 x 1.3 x 0.8 cm. Composition: Solid Echogenicity: Isoechoic Shape: wider than tall. Margins: Smooth Echogenic foci: No Total points: 3 ACR TI-RADS category: Mildly suspicious IMPRESSION: 1. Stable appearance of 3 nodules in the thyroid gland, 1 of which has been previously biopsied. 2. Resolution of previously seen cystic thyroid nodules. 3. Continue follow-up as detailed below. ACR TI-RADS definitions and recommendations: TI-RADS 1 (benign): 0 points. FNA not needed. TI-RADS 2 (not suspicious): 2 points. FNA not needed. TI-RADS 3 (mildly suspicious): 3 points. * FNA if 2.5 cm or larger, follow up if 1.5 cm or larger (at 1, 3, and 5 years). TI-RADS 4 (moderately suspicious): 4-6 points. * FNA if 1.5 cm or larger, follow up if 1 cm or larger (at 1, 2, 3, and 5 years). TI-RADS 5 (highly suspicious): 7 points or more. * FNA if 1 cm or larger, follow up if 0.5 cm or larger (every year for 5 years). Dictated by: Dorene Wang M.D. on 03/24/2023 at 12:46 Approved by: Droene Wang M.D. on 03/24/2023 at 12:58
== END ==
PROVIDERS: PCP Family Medicine; Referring Provider Family Medicine; Visit Provider Family Medicine
DX: E04.2 Nontoxic multinodular goiter (principal)
CPT/HCPCS: 76536

== ENCOUNTER 2023-11-11 07:21 | Day surgery (SDC) | payer MEDICARE, OTHER, SELFPAY ==
[2023-11-11] MEDS: LACTATED RINGERS 1,000 ML 42 ML IV (07:38)
[2023-11-11 07:44] VITALS: BP 150/80; PULSE 64; RESP 18; TEMP 36.7; O2SAT 97
--- NOTE | 2023-11-11 08:15 | P.HP_ITS ---
History of Present Illness History of Present Illness Date Patient Seen: 11/11/23 Time Patient Seen: 08:15 Chief complaint: SDC Narrative: 78-year-old man personal history of colonic polyps here for screening colonoscopy. Last colonoscopy 2018. Family history significant for colon cancer in his father and brother. No abdominal concerns today. PENDING SALE TO [facility] Family History (Updated 11/11/23 @ 08:16 by Zurdo Conrad MD) Father Cancer Brother Cancer Social History household members: spouse Smoking Status: Never smoker Meds Home Medications and Allergies Home Medications Medication Instructions Recorded Confirmed Type atorvastatin 10 mg tablet 10 mg PO DAILY 11/11/23 11/11/23 History dutasteride 0.5 mg capsule 0.5 mg PO DAILY 11/11/23 11/11/23 History lisinopril 30 mg tablet 30 mg PO DAILY blood pressure 11/11/23 11/11/23 History tamsulosin 0.4 mg capsule 0.4 mg PO DAILY 11/11/23 11/11/23 History Allergies Allergy/AdvReac Type Severity Reaction Status Date / Time No Known Drug Allergies Allergy Verified 11/11/23 07:40 Exam Vital Signs (past 8 hours): - 11/11/23 07:44 Temperature 98.0 F Pulse Rate 64 Respiratory Rate 18 Blood Pressure 150/80 H Pulse Oximetry 97 Oxygen Delivery Method Room Air Oxygen Delivery Method Room Air Narrative Exam Narrative: General adult man alert oriented no acute distress Chest nonlabored respiration Extremities warm well perfused Assessment & Plan Assessment & Plan narrative: The patient requires colorectal screening and colonoscopy is recommended. Technical details were discussed. Risks, benefits, alternatives explained. Risks including but not limited to myocardial infarction, aspiration, bleeding, pain, missed lesion, incomplete examination, need for further radiographic studies, intestinal injury, and need for major abdominal surgery were discussed. All questions were answered to their satisfaction, and they are in agreement with this plan.
[2023-11-11 08:38] VITALS: BP 129/105; PULSE 87; RESP 14; TEMP 36.3; O2SAT 97
--- NOTE | 2023-11-11 08:41 | P.OP.COLON_ITS ---
Operative Date/Time/Diagnoses Date of procedure: 11/11/23 Time of procedure: 08:42 Pre-op diagnosis: Family history of colon cancer Personal history of colonic polyps Procedure & Clinicians Study performed: Screening colonoscopy Same procedure as scheduled: Yes Indications: Personal history of colonic polyps Family history of intestinal malignancy in 2 first-degree relatives Surgeon: Zurdo Conrad Procedure Notes Procedure in detail: The history and physical was performed/updated and the patient is ASA class is 2. The procedure was discussed in detail with the patient. Potential risks complications including infection, bleeding, missed diagnosis, perforation, need for surgery, and were explained. Their questions were answered and informed consent was obtained. Patient was brought to the procedure room and placed standard monitoring equipment. The patient's vital signs were monitored continuously throughout the entire procedure. Prior to starting time-out was performed. The patient was placed in the left lateral recumbent position. Procedural sedation was administered by anesthesia. Examination began with a thorough inspection of the perianal area there was no evidence of fissures, fistulae, external hemorrhoids or cutaneous malignancy. The colonoscopy scope was then placed into the anal canal and was advanced to the cecum, which was identified by the ileocecal valve, the appendiceal orifice and the confluence of the taenia. The scope was then slowly withdrawn examining colon thoroughly in all directions, irrigating it of any residual stool. The scope was retroflexed within the rectum The patient tolerated the procedure well. They will be discharged once criteria are met. The prep was of fair quality. The withdrawl time was 6 minutes. FINDINGS * Extensive junior diverticulosis * No masses or polyps * Internal hemorrhoids Findings: divertiulosis Specimen(s): none sent Post-procedure Recommendations: Colonoscopy in 5 years and High fiber diet Disposition: same day surgery
[2023-11-11 08:43] VITALS: BP 112/58; PULSE 60; RESP 19; O2SAT 96
[2023-11-11 08:47] VITALS: BP 103/54; PULSE 64; RESP 15; O2SAT 95
[2023-11-11 08:55] VITALS: BP 115/64; PULSE 60; RESP 14; TEMP 36.4; O2SAT 98
== END 2023-11-11 09:14 | disposition home or self-care (01) ==
PROVIDERS: PCP Family Medicine; Referring Provider Surgery; Visit Provider Surgery
PROC: 0DJD8ZZ Inspection of Lower Intestinal Tract, Via Natural or Artificial Opening Endoscopic (ICD-10-PCS; CPT 45378; principal; 2023-11-11 08:15)
DX: Z12.11 Encounter for screening for malignant neoplasm of colon (principal); Z86.010 Personal history of colon polyps; Z80.0 Family history of malignant neoplasm of digestive organs; K57.30 Diverticulosis of large intestine without perforation or abscess without bleeding; K64.8 Other hemorrhoids
CPT/HCPCS: G0105; J2704

== ENCOUNTER 2024-03-01 09:38 | Emergency (ER) | payer MEDICARE, OTHER, SELFPAY ==
[2024-03-01] VITALS (19 sets, daily range): BP systolic 124–167; BP diastolic 59–75; PULSE 48–62; RESP 18–61; TEMP 36.7; O2SAT 93–98; BMI 32.8
--- NOTE | 2024-03-01 10:01 | EKG_ITS ---
[address] [id number], [place] [address] Test Date: 2024-03-01 Pat Name: Wayne Lopez Department: Room: Gender: Male Telehealth Director: GREGOR : 1945 Requested By: Order Number: [id number] Reading MD: Lawrence White MD Measurements Intervals [place] Rate: 53 P: 33 CA: 160 QRS: 1 QRSD: 98 T: 10 QT: 396 QTc: 371 Interpretive Statements Sinus bradycardia Electronically Signed On 03-01-2024 11:03:46 PDT by Lawrence White MD
--- NOTE | 2024-03-01 10:01 | DI.RAD.S_ITS ---
PROCEDURE: XR CHEST 1V INDICATIONS: Shortness of breath TECHNIQUE: One view of the chest was acquired. COMPARISON: None. FINDINGS: Overlying EKG leads limit evaluation. Surgical changes and devices: None. Lungs and pleura: Lungs are clear. No pleural effusions or pneumothorax. Mediastinum: Mediastinal contours appear normal. Heart size is normal. Bones and chest wall: No suspicious bony lesions. Overlying soft tissues appear unremarkable. IMPRESSION: No acute cardiopulmonary process. Dictated by: Jasper Huynh M.D. on 03/01/2024 at 9:16 Approved by: Jasper Huynh M.D. on 03/01/2024 at 9:26
[2024-03-01 10:36] LABS: Add Manual Diff / Slide Review NO; Basophils Absolute Auto 0 /uL (0-100); Basophils Percent Auto 0.3 % (0-2); Eosinophils Absolute Auto 0 /uL (0-450); Eosinophils Percent Auto 0.4 % (2-4); Hematocrit 39.4 % (41-53); Hemoglobin 13.6 g/dL (13.5-17.5); Lymphocytes Absolute Auto 1300 /uL (1100-4500); Lymphocytes Percent Auto 17.8 % (25-40); Mean Corpuscular HGB Conc 34.4 % (30-36); Mean Corpuscular Hemoglobin 30.5 PG (26-34); Mean Corpuscular Volume 88.6 fL (80-100); Monocytes Absolute Auto 500 /uL (0-900); Neutrophils Absolute Auto 5600 /uL (1500-7000); Neutrophils Percent Auto 74.5 % (50-75); Platelet Count 229 X10^3/uL (150-400); Red Blood Cell Count 4.45 X10^6/uL (4.5-5.9); White Blood Cell Count 7.5 X10^3/uL (4.5-11.0)
[2024-03-01 10:44] LABS: INR 0.9 (0.9-1.3); Prothrombin Time 10.3 SECONDS (9.4-12.5)
[2024-03-01 10:47] LABS: Alanine Aminotransferase 29 IU/L (<50); Albumin 4.4 g/dL (3.5-5.0); Albumin Globulin Ratio 1.4 (1.0-2.8); Alkaline Phosphatase 66 U/L (38-126); Aspartate Aminotransferase 29 IU/L (17-59); BUN Creatinine Ratio 28.4 (6-22); Bilirubin Total 0.8 mg/dL (0.2-1.3); Blood Urea Nitrogen 27 mg/dL (9-20); Calcium 9.8 mg/dL (8.4-10.2); Carbon Dioxide 19 mmol/L (22-32); Chloride 105 mmol/L (98-107); Estimated Glomerular Filt Rate > 60 mL/min (>60); Globulin 3.2 g/dL (1.7-4.1); Glucose 123 mg/dL (80-110); HEMOLYSIS < 15 (0-50); Lactate (Lactic Acid) 1.3 mmol/L (0.7-2.1); Potassium 4.4 mmol/L (3.4-5.1); Sodium 134 mmol/L (137-145); Total Protein 7.6 g/dL (6.3-8.2)
[2024-03-01 10:59] LABS: NT-proBNP (BNP-Adult 18+) 22 pg/mL (<450); Troponin I < 0.012 ng/mL (0.01-0.034)
--- NOTE | 2024-03-01 12:07 | ED_ITS ---
HPI - SOB/Dyspnea General Chief Complaint: Shortness of Breath/Dyspnea Stated Complaint: Light-Headed, Dizzy, SoB on Exertion Time Seen by Provider: 03/01/24 12:07 Source: patient Mode of arrival: Ambulatory Limitations: no limitations History of Present Illness HPI Narrative: 78-year-old history of hypertension dyslipidemia, BPH presents with complaint of increasing lightheadedness and dizziness for the past 2 months as well as shortness of breath that has progressed over the past 2 or 3 days. Patient states started noticing some changes about 2 months ago. He has a metal artifact was at a art show in [place] was sitting up and got very lightheaded and felt like he might pass out. Patient states no vertigo symptoms or lift the room is spinning. He states he will feel little short of breath or like he is having to breathe fast. Denies any headaches with these episodes denies any chest pain, he has not passed out but feels like he is about 2. Typically when he is upright or walking has when he has symptoms, sometimes will have some mild symptoms seated but feels fine when he is lying flat. He has got diaphoretic before with these episodes. No swelling of extremities. Has felt a little nauseated but no vomiting. States had some loose stools today no hematochezia or melena. No abdominal back or flank pain. Patient notes over the past 3 days he has been increasingly short of breath as well as lightheaded. Patient takes medication for blood pressure, prostate and cholesterol. 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 No known drug allergies. No tobacco, drinks alcohol once monthly, no recreational drugs. Primary care is Dr. Hartman. Denies any prior cardiology evaluations or stress test. Related Data Home Medications Medication Instructions Recorded Confirmed atorvastatin 10 mg tablet 10 mg PO DAILY 11/11/23 11/11/23 dutasteride 0.5 mg capsule 0.5 mg PO DAILY 11/11/23 11/11/23 lisinopril 30 mg tablet 30 mg PO DAILY blood pressure 11/11/23 11/11/23 tamsulosin 0.4 mg capsule 0.4 mg PO DAILY 11/11/23 11/11/23 Previous Rx's Medication Instructions Recorded furosemide 40 mg tablet (Lasix) 40 mg PO DAILY #3 tabs 03/01/24 Allergies Allergy/AdvReac Type Severity Reaction Status Date / Time No Known Drug Allergies Allergy Verified 03/01/24 10:00 Review of Systems Review of Systems ROS Unobtainable: All systems reviewed & are unremarkable except as noted in HPI and below Patient History Family History Father Cancer Brother Cancer Social History household members: spouse Smoking Status: Never smoker Smoking Status: Never smoker alcohol intake frequency: a few times a month Substance Use Type: does not use Exam Narrative Exam Narrative: GENERAL: Alert and oriented x three, male in mild distress. No diaphoresis. HEENT: Head normocephalic, atraumatic, EOMI, pupils reactive, face symmetric, moist mucous membranes NECK: Supple, full range of motion CARDIOVASCULAR: Regular rate and rhythm without murmurs, rubs or gallops. No JVD. No edema bilateral lower extremities. RESPIRATORY: Breath sounds equal bilaterally, no wheezes rales or rhonchi. No tachypnea accessory muscle use. ABDOMEN: Soft, nontender. Normoactive bowel sounds all 4 quadrants. No guarding or rebound, rigidity, no mass, no pulsatile mass or bruit : No CVA tenderness EXTREMITIES: Normal range of motion, no clubbing or edema. Neurovascularly intact NEUROLOGICAL: Cranial nerves II through XII grossly intact. Moving all extremities SKIN: Warm, dry, no petechiae, no rashes or lesions. Initial Vital Signs Initial Vital Signs: Vital Signs Pulse Rate 60 03/01/24 09:49 Respiratory Rate 22 03/01/24 09:49 Course Orders Ordered: ED Orders 03/01/24 10:01 XR chest 1V Stat EKG-12 Lead Stat Measure peak expiratory flow ONCE RT Consult Eval and Treat NOW 03/01/24 10:20 Complete Blood Count AUTO DIFF Stat Comprehensive Metabolic Panel Stat D Dimer Stat Lactate (Lactic Acid) Stat NT-proBNP (BNP-Adult 18+) Stat Prothrombin Time INR Stat TSH w/ Reflex to FT4 Stat Troponin I Stat 03/01/24 12:19 CT angio chest PE protocol Stat 03/01/24 12:35 Trop I [Troponin I] Stat Discontinued Medications Furosemide (Furosemide 40 Mg/4 Ml Vial) 40 mg IV NOW ONE Stop: 03/01/24 14:33 Last Admin: 03/01/24 14:39 Dose: 40 mg Documented By: MLM Vital Signs Vital signs: Vital Signs - 8 hr 03/01/24 09:49 03/01/24 09:51 03/01/24 09:51 Temperature Pulse Rate 60 62 Respiratory Rate 22 21 Blood Pressure 163/71 H Pulse Oximetry 97 Oxygen Delivery Method 03/01/24 09:53 03/01/24 10:00 03/01/24 10:00 Temperature 98.1 F Pulse Rate 61 55 L Respiratory Rate 18 26 H Blood Pressure 163/71 H 136/63 Pulse Oximetry 97 96 Oxygen Delivery Method Room Air 03/01/24 10:30 03/01/24 10:30 03/01/24 11:00 Temperature Pulse Rate 53 L Respiratory Rate 22 Blood Pressure 124/59 L 131/60 Pulse Oximetry 97 Oxygen Delivery Method 03/01/24 11:00 03/01/24 11:30 03/01/24 11:30 Temperature Pulse Rate 51 L 50 L Respiratory Rate 24 34 H Blood Pressure 127/60 Pulse Oximetry 96 96 Oxygen Delivery Method 03/01/24 11:40 03/01/24 11:40 03/01/24 12:00 Temperature Pulse Rate 54 L 48 L Respiratory Rate 26 H 21 Blood Pressure 156/70 H Pulse Oximetry 98 97 Oxygen Delivery Method 03/01/24 12:00 03/01/24 12:30 03/01/24 12:30 Temperature Pulse Rate 52 L Respiratory Rate 33 H Blood Pressure 132/63 148/65 H Pulse Oximetry 98 Oxygen Delivery Method 03/01/24 13:00 03/01/24 13:30 03/01/24 13:35 Temperature Pulse Rate 57 L 57 L 50 L Respiratory Rate 23 22 32 H Blood Pressure Pulse Oximetry 98 97 97 Oxygen Delivery Method 03/01/24 13:35 03/01/24 14:00 03/01/24 14:00 Temperature Pulse Rate 51 L Respiratory Rate 26 H Blood Pressure 141/69 H 142/69 H Pulse Oximetry 97 Oxygen Delivery Method 03/01/24 14:08 03/01/24 14:08 03/01/24 14:20 Temperature Pulse Rate 56 L Respiratory Rate 22 Blood Pressure 141/66 H 143/66 H Pulse Oximetry 95 Oxygen Delivery Method 03/01/24 14:20 03/01/24 14:30 03/01/24 14:30 Temperature Pulse Rate 50 L 54 L Respiratory Rate 18 19 Blood Pressure 131/64 Pulse Oximetry 97 96 Oxygen Delivery Method 03/01/24 15:04 03/01/24 15:05 03/01/24 15:05 Temperature Pulse Rate 58 L 56 L Respiratory Rate 61 H 24 Blood Pressure 167/75 H Pulse Oximetry 93 97 Oxygen Delivery Method MDM - SOB/Dyspnea Lab Data 03/01/24 10:20 03/01/24 10:20 Labs: Lab Results 03/01/24 03/01/24 Range/Units 10:20 12:35 WBC 7.5 (4.5-11.0) X10^3/uL RBC 4.45 L (4.5-5.9) X10^6/uL Hgb 13.6 (13.5-17.5) g/dL Hct 39.4 L (41-53) % MCV 88.6 (80-100) fL MCH 30.5 (26-34) PG MCHC 34.4 (30-36) % RDW 13.0 (11.6-14.8) % Plt Count 229 (150-400) X10^3/uL Neut % (Auto) 74.5 (50-75) % Lymph % (Auto) 17.8 L (25-40) % [place] % (Auto) 7.0 (3-14) % Eos % (Auto) 0.4 L (2-4) % Baso % (Auto) 0.3 (0-2) % Neut # (Auto) 5600 (7779-5991) /uL Lymph # (Auto) 1300 (7476-1444) /uL [place] # (Auto) 500 (0-900) /uL Eos # (Auto) 0 (0-450) /uL Baso # (Auto) 0 (0-100) /uL PT 10.3 (9.4-12.5) SECONDS INR 0.9 (0.9-1.3) D-Dimer 2914 H (<500) ng/ml Sodium 134 L (137-145) mmol/L Potassium 4.4 (3.4-5.1) mmol/L Chloride 105 (98-107) mmol/L Carbon Dioxide 19 L (22-32) mmol/L BUN 27 H (9-20) mg/dL Creatinine 0.95 (0.66-1.25) mg/dL Estimated GFR > 60 (>60) mL/min BUN/Creatinine Ratio 28.4 H (6-22) Glucose 123 H (80-110) mg/dL Lactate 1.3 (0.7-2.1) mmol/L Calcium 9.8 (8.4-10.2) mg/dL Total Bilirubin 0.8 (0.2-1.3) mg/dL AST 29 (17-59) IU/L ALT 29 (<50) IU/L Alkaline Phosphatase 66 (38-126) U/L Troponin I < 0.012 < 0.012 (0.01-0.034) ng/mL NT-Pro-B Natriuret Pep 22 (<450) pg/mL Total Protein 7.6 (6.3-8.2) g/dL Albumin 4.4 (3.5-5.0) g/dL Globulin 3.2 (1.7-4.1) g/dL Albumin/Globulin Ratio 1.4 (1.0-2.8) TSH 0.34 L (0.47-4.68) uIU/mL Free T4 1.13 (0.78-2.19) ng/dL Imaging Data Chest x-ray: Radiologist's Impression: [place] [address] XRay Report Signed Patient: Wayne Lopez MR#: [id number] : 1945 Acct:[id number] Age/Sex: 78 / M Date of Service: 03/01/24 Loc: ED Accession Number: [id number] Procedure: XR chest 1V Ordering Provider: Renita Gonzales D.O. PROCEDURE: XR CHEST 1V INDICATIONS: Shortness of breath TECHNIQUE: One view of the chest was acquired. COMPARISON: None. FINDINGS: Overlying EKG leads limit evaluation. Surgical changes and devices: None. Lungs and pleura: Lungs are clear. No pleural effusions or pneumothorax. Mediastinum: Mediastinal contours appear normal. Heart size is normal. Bones and chest wall: No suspicious bony lesions. Overlying soft tissues appear unremarkable. IMPRESSION: No acute cardiopulmonary process. Dictated by: Jasper Huynh M.D. on 03/01/2024 at 9:16 Approved by: Jasper Huynh M.D. on 03/01/2024 at 9:26 CT scan - chest: Radiologist's Impression: Wayne Lopez?([place])??78??M??1945 ? Allergy/Adv: No Known Drug Allergies (More??) Close Chest CTA (Signed) Jasper Huynh - 03/01/24 Chest X-Ray (Signed) Jasper Huynh - 03/01/24 Thyroid Ultrasound (Signed) Dorene Wang - 03/24/23 Thyroid Uptake & Scan Nuc Medicine (Signed) Augustin Eason - 09/02/22 Abdominal Arterial Study US (Signed) Augustin Eason - 09/02/[address] (Signed) Kleber Harmon - 06/28/22 Lumbar Spine X-Ray (Signed) Kleber Harmon - 01/14/22 Foot MRI (Signed) Terrance Melvin - 05/30/21 Thyroid Ultrasound (Signed) Terrance Melvin - 05/16/21 Needle Aspiration Ultrasound (Signed) Yuriy Eason - 02/11/20 Thyroid Ultrasound (Signed) Patrick Polanco - 12/24/[address] (Signed) Patrick Polanco - 12/21/19 Eye X-Ray (Signed) Terrance Melvin - 10/08/19 Brain MRI (Signed) Yuriy Eason - 10/08/19 Hand X-Ray (Signed) Franco Love - 08/03/19 Hand X-Ray (Signed) Alex Ruiz - 07/20/19 Telemetry Strips 10/23/18 [place] [address] CT Scan Report Signed Patient: Wayne Lopez MR#: [id number] : 1945 Acct:[id number] Age/Sex: 78 / M Date of Service: 03/01/24 Loc: ED Accession Number: [id number] Procedure: CT angio chest PE protocol Ordering Provider: Renita Gonzales D.O. PROCEDURE: CT ANGIO CHEST PE PROTOCOL INDICATIONS: increased shortness of breath, lightheaded/near syncope TECHNIQUE: After the administration of intravenous contrast, 2 mm thick sections acquired from the pulmonary apices to the posterior costophrenic angles. 3-dimensional maximum intensity projection (MIP) coronal and sagittal reformats were then acquired through the thorax. For radiation dose reduction, the following was used: automated exposure control, adjustment of mA and/or kV according to patient size. COMPARISON: [facility], CR, XR CHEST 1V, 03/01/2024, 10:04. FINDINGS: Image quality: Diagnostic. Pulmonary arteries: Enhancement of the pulmonary artery is adequate. No filling defects in the pulmonary vasculature to the level of the proximal subsegmental pulmonary arteries. Main pulmonary artery is normal in caliber. Lower Neck: No enlarged lymph nodes. Thyroid: Normal thyroid gland is diffusely enlarged with no thyroid nodules which require follow-up. Axillae: No enlarged lymph nodes. Chest Wall: Unremarkable. Bones: No acute fractures. No aggressive appearing lytic or blastic osseous lesions. Thoracic ankylosis. Multilevel degenerative changes of the spine. Lungs and Pleura: No pneumothorax or pleural effusions. Lung volumes are low with dependent atelectasis. Right upper lobe solid, noncalcified pulmonary nodule measuring 2 mm (5/86). Left upper lobe solid, noncalcified pulmonary nodule measuring 2 mm (5/143). Left tyler fissure solid pulmonary nodule versus lymph node measuring 3 mm (5/139). Mild bilateral interlobular septal thickening with diffuse mosaic attenuation. Scattered subcentimeter calcified granulomas. Heart: Heart size is at the upper limits of. No pericardial effusion. Thoracic Vessels: No aortic aneurysm. Mediastinum and Stephanie: No enlarged lymph nodes. Esophagus: No wall thickening. Small hiatal hernia. Upper Abdomen: Partially visualized colonic diverticulosis, without diverticulitis. Left renal upper pole partially visualized hydronephrosis versus parapelvic cyst. IMPRESSION: 1. No acute pulmonary embolism. 2. Mild bilateral interlobular septal thickening with diffuse mosaic attenuation suggestive of early pulmonary edema. 3. Heart size is at the upper limits of normal. Consider ECHO for evaluation of a CHF exacerbation. 4. A few scattered solid, noncalcified pulmonary nodules measuring up to 3 mm. Per Fleischner guidelines, if patient is low risk, no additional follow-up needed. If patient is high risk, consider repeat CT chest in 12 months. 5. Left renal upper pole partially visualized hydronephrosis versus parapelvic cyst. If clinically warranted, recommend a renal ultrasound for further evaluation. 6. Thyroid gland is diffusely enlarged with no discrete nodule which requires ultrasound follow-up, within the visualized field of view. Correlate with thyroid function tests. Fleischner Society criteria for lung nodule followup. Nodule size (mm)Low-risk patientHigh-risk patient<=4No follow-up needed.Follow- up at 12 months; if no change, no further follow-up.>7-3Yssefe-ra CT at 12 months; if no change, no further follow-up needed.Initial follow-up CT at 6-12 months, then 18-24 months if no change.>6-8Initial follow-up CT at 6-12 months, then 18-24 months if no change.Initial follow-up CT at 3-6 months, then 9-12 months and 24 months if no change.>8Follow-up CT at 3,9 and 24 months or PET and/or biopsySame as for low-risk patientsNon-solid (ground-glass) or partly solid nodules may require longer follow-up to exclude indolent adenocarcinoma. Dictated by: Jasper Huynh M.D. on 03/01/2024 at 13:09 Approved by: Jasper Huynh M.D. on 03/01/2024 at 13:16 ECG Data Attestation: I personally reviewed and interpreted this ECG as follows: Interpretation: Sinus bradycardia rate of 53 HI 160 QRS of 98 QTC of 371, no acute ST elevation depression appreciated patient does not have any priors for comparison. EKG 2. Sinus bradycardia premature atrial complexes rate of 49 HI 162 QRS of 100 QTC 377, no acute ST elevation or depression. MDM Narrative Medical decision making narrative: Labs show white count of 7.5 hemoglobin of 13.6, hematocrit 39, platelets are 229. INR 0.9, sodium is 134 potassium 4.4 chloride 105 with a CO2 of 19 BUN 27 creatinine 0.95 with a glucose of 123 lactate 1.3 normal calcium negative LFTs troponins less than 0.012 with a BNP of 22. Dimer is elevated at 2914, CT angio was obtained. Repeat troponin is less than 0.012. Chest x-ray shows no acute change. EKG shows sinus bradycardia no acute ST elevation depression. Repeat EKG shows no acute changes. Patient states not a lot of travel but has traveled to other states for art shows. Describes some increasing shortness of breath and near syncope/lightheadedness. [place] appropriate to rule out pulmonary embolism and pericardial effusion. Ct Angio rule out PE, no pulmonary emboli, mild bilateral interlobular septal thickening with diffuse mosaic attenuation suggestive early pulmonary edema heart size upper limits of normal. Few scattered solid noncalcified pulmonary nodules measuring up to 3 mm no additional follow up if patient is low risk high-risk consider repeat chest CT in 12 months. Left renal upper pole partially visualized hydro versus parapelvic cyst, renal ultrasound as needed. Thyroid gland diffusely enlarged without discrete nodule. TSH is 0.34 free T4 is 1.13. Patient has been persistently bradycardic blood pressure has been overall appropriate but also possibility of significant bradycardia causing symptoms. Patient does have what appears to be some pulmonary edema slightly enlarged heart. Patient likely benefit from echo but is very stable here in the department ambulating throughout the department without issue. Discussed observation versus discharge home. Patient is open to either option. Did review CT findings and their entirety. He notes he has been on HCTZ 12.5 mg for the past couple of weeks started by Dr. Hartman. Spoke with Dr. White, covering for Dr. Hartman. We will help facilitate short term follow up and echo. Discharge Plan Departure Patient Disposition: Home Clinical Impression: Pulmonary nodule, Enlarged thyroid, CHF (congestive heart failure) Instructions: DI for Heart Failure Activity Restrictions/Additional Instructions: Follow up with Dr. Hartman, I spoke with the on-call physician to help facilitate follow-up. Please call tomorrow morning to set up a follow up appointment. Talk with Dr. Hartman about having an echo set up and possibly Holter monitor or ZIO patch. You do have TSH or thyroid test pending. Follow this up with Dr. Hartman. Your CT imaging did not show an enlarged thyroid, also showed some pulmonary nodules. Share this information with your primary care physician they can follow up with repeat imaging as needed. Continue your home medications as prescribed. Please take 1 tablet of Lasix daily for the next 3 days. You can take your next dose tomorrow. Prescription sent to [facility] in [place]. Please return for worsening symptoms increasing lightheadedness, any episodes of passing out, chest pain or pressure, increasing shortness of breath, persistent vomiting, new swelling of your extremities or other new or concerning changes. Prescriptions: New furosemide [Lasix] 40 mg tablet 40 mg PO DAILY Qty: 3 0RF No Action atorvastatin 10 mg tablet 10 mg PO DAILY tamsulosin 0.4 mg capsule 0.4 mg PO DAILY lisinopril 30 mg tablet 30 mg PO DAILY dutasteride 0.5 mg capsule 0.5 mg PO DAILY Referrals: Jose Hartman MD [Primary Care Provider] - Stand Alone Forms: Patient Portal/API
--- NOTE | 2024-03-01 12:19 | DI.CT.S_ITS ---
PROCEDURE: CT ANGIO CHEST PE PROTOCOL INDICATIONS: increased shortness of breath, lightheaded/near syncope TECHNIQUE: After the administration of intravenous contrast, 2 mm thick sections acquired from the pulmonary apices to the posterior costophrenic angles. 3-dimensional maximum intensity projection (MIP) coronal and sagittal reformats were then acquired through the thorax. For radiation dose reduction, the following was used: automated exposure control, adjustment of mA and/or kV according to patient size. COMPARISON: [facility], CR, XR CHEST 1V, 03/01/2024, 10:04. FINDINGS: Image quality: Diagnostic. Pulmonary arteries: Enhancement of the pulmonary artery is adequate. No filling defects in the pulmonary vasculature to the level of the proximal subsegmental pulmonary arteries. Main pulmonary artery is normal in caliber. Lower Neck: No enlarged lymph nodes. Thyroid: Normal thyroid gland is diffusely enlarged with no thyroid nodules which require follow-up. Axillae: No enlarged lymph nodes. Chest Wall: Unremarkable. Bones: No acute fractures. No aggressive appearing lytic or blastic osseous lesions. Thoracic ankylosis. Multilevel degenerative changes of the spine. Lungs and Pleura: No pneumothorax or pleural effusions. Lung volumes are low with dependent atelectasis. Right upper lobe solid, noncalcified pulmonary nodule measuring 2 mm (5/86). Left upper lobe solid, noncalcified pulmonary nodule measuring 2 mm (5/143). Left tyler fissure solid pulmonary nodule versus lymph node measuring 3 mm (5/139). Mild bilateral interlobular septal thickening with diffuse mosaic attenuation. Scattered subcentimeter calcified granulomas. Heart: Heart size is at the upper limits of. No pericardial effusion. Thoracic Vessels: No aortic aneurysm. Mediastinum and Stephanie: No enlarged lymph nodes. Esophagus: No wall thickening. Small hiatal hernia. Upper Abdomen: Partially visualized colonic diverticulosis, without diverticulitis. Left renal upper pole partially visualized hydronephrosis versus parapelvic cyst. IMPRESSION: 1. No acute pulmonary embolism. 2. Mild bilateral interlobular septal thickening with diffuse mosaic attenuation suggestive of early pulmonary edema. 3. Heart size is at the upper limits of normal. Consider ECHO for evaluation of a CHF exacerbation. 4. A few scattered solid, noncalcified pulmonary nodules measuring up to 3 mm. Per Fleischner guidelines, if patient is low risk, no additional follow-up needed. If patient is high risk, consider repeat CT chest in 12 months. 5. Left renal upper pole partially visualized hydronephrosis versus parapelvic cyst. If clinically warranted, recommend a renal ultrasound for further evaluation. 6. Thyroid gland is diffusely enlarged with no discrete nodule which requires ultrasound follow-up, within the visualized field of view. Correlate with thyroid function tests. Fleischner Society criteria for lung nodule followup. Nodule size (mm)Low-risk patientHigh-risk patient<=4No follow-up needed.Follow-up at 12 months; if no change, no further follow-up.>8-4Ymiuhp-ok CT at 12 months; if no change, no further follow-up needed.Initial follow-up CT at 6-12 months, then 18-24 months if no change.>6-8Initial follow-up CT at 6-12 months, then 18-24 months if no change.Initial follow-up CT at 3-6 months, then 9-12 months and 24 months if no change.>8Follow-up CT at 3,9 and 24 months or PET and/or biopsySame as for low-risk patientsNon-solid (ground-glass) or partly solid nodules may require longer follow-up to exclude indolent adenocarcinoma. Dictated by: Jasper Huynh M.D. on 03/01/2024 at 13:09 Approved by: Jasper Huynh M.D. on 03/01/2024 at 13:16
[2024-03-01 12:20] LABS: D Dimer 2914 ng/ml (<500)
--- NOTE | 2024-03-01 12:24 | EKG_ITS ---
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
[2024-03-01 13:06] LABS: Troponin I < 0.012 ng/mL (0.01-0.034)
[2024-03-01] MEDS: FUROSEMIDE 40 MG/4 ML VIAL IV (14:39)
[2024-03-01 15:29] LABS: TSH w/ Reflex to FT4 0.34 uIU/mL (0.47-4.68)
[2024-03-01 15:58] LABS: Free T4, Direct Thyroxine 1.13 ng/dL (0.78-2.19)
== END 2024-03-01 15:14 | disposition home or self-care (01) ==
PROVIDERS: Emergency Provider Emergency Medicine; PCP Family Medicine
DX: I50.9 Heart failure, unspecified (principal); R06.02 Shortness of breath; R00.1 Bradycardia, unspecified; E04.1 Nontoxic single thyroid nodule; R91.1 Solitary pulmonary nodule; Z79.899 Other long term (current) drug therapy
CPT/HCPCS: 36415; 71045; 71275; 80053; 83605; 83880; 84439; 84443; 84484; 85025; 85379; 85610; 93005; 93010; 96374; 99284; J1940; Q9967

== ENCOUNTER 2024-03-03 11:09 | Emergency (ER) | payer MEDICARE, OTHER, SELFPAY ==
[2024-03-03] VITALS (12 sets, daily range): BP systolic 112–163; BP diastolic 54–74; PULSE 59–83; RESP 16–35; TEMP 36.6; O2SAT 94–97
--- NOTE | 2024-03-03 11:25 | DI.RAD.S_ITS ---
PROCEDURE: XR CHEST 1V INDICATIONS: chest pain TECHNIQUE: One view of the chest was acquired. COMPARISON: [facility], CR, XR CHEST 1V, 03/01/2024, 10:04. FINDINGS: Surgical changes and devices: None. Lungs and pleura: Lungs are clear. No pleural effusions or pneumothorax. Mediastinum: Mediastinal contours appear normal. Heart size is normal. Bones and chest wall: No suspicious bony lesions. Overlying soft tissues appear unremarkable. IMPRESSION: No acute cardiopulmonary abnormality is seen. Dictated by: Tomas Barboza M.D. on 03/03/2024 at 11:38 Approved by: Tomas Barboza M.D. on 03/03/2024 at 11:39
--- NOTE | 2024-03-03 11:25 | EKG_ITS ---
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
--- NOTE | 2024-03-03 11:35 | ED.SYNCOPE ---
HPI - Syncope General Chief Complaint: Syncope Stated Complaint: near syncope Time Seen by Provider: 03/03/24 11:35 Source: patient and EMS Mode of arrival: EMS History of Present Illness HPI narrative: 78-year-old male with history of chronic low back pain, sudden hot tub 104?F this morning hoping it would help his back discomfort, for about 20 minutes, was then able to shower in standing, taking same Lasix dose daily regimen, then felt like he was going to pass out, no associated palpitations, no associated chest pain or shortness of breath, no shaking or seizure activity, he did not fall or have any trauma. No recent diarrhea, black stools, red stools. He has not feel nauseated. He has not had frequency of urination. No blood in urine. He was able to sit, transfer by EMS, feels better on arrival. Denies history of previous stroke or TIA symptoms. He did not have focal weakness to face arm or leg, nor tingling to face arm or leg Related Data Home Medications Medication Instructions Recorded Confirmed atorvastatin 10 mg tablet 10 mg PO DAILY 11/11/23 11/11/23 dutasteride 0.5 mg capsule 0.5 mg PO DAILY 11/11/23 11/11/23 lisinopril 30 mg tablet 30 mg PO DAILY blood pressure 11/11/23 11/11/23 tamsulosin 0.4 mg capsule 0.4 mg PO DAILY 11/11/23 11/11/23 Previous Rx's Medication Instructions Recorded furosemide 40 mg tablet (Lasix) 40 mg PO DAILY #3 tabs 03/01/24 Allergies Allergy/AdvReac Type Severity Reaction Status Date / Time No Known Drug Allergies Allergy Verified 03/03/24 11:34 Review of Systems Review of Systems Narrative: see HPI Patient History Family History Father Cancer Brother Cancer Social History household members: spouse Smoking Status: Never smoker Smoking Status: Never smoker alcohol intake frequency: a few times a month Substance Use Type: does not use Exam Narrative Exam Narrative: GENERAL: Well-developed patient, in mild distress. HEAD: Atraumatic. Normocephalic. EYES: Pupils equal round and reactive. Extraocular motions intact. No scleral icterus. No injection or drainage. ENT: Nose without bleeding, purulent drainage. Throat without erythema, tonsillar hypertrophy or exudate. Airway patent. NECK: Trachea midline. Non tender CARDIOVASCULAR: Regular rate and rhythm without murmurs, gallops, or rubs. RESPIRATORY: Clear to auscultation. Breath sounds equal bilaterally. No wheezes, rales, or rhonchi. GASTROINTESTINAL: Abdomen soft, non-tender, nondistended. EXTREMITIES: No edema or joint tenderness. BACK: Nontender without deformity or crepitance. No flank tenderness. NEURO: AOx3. SKIN: No rash or erythema of visible areas Initial Vital Signs Initial Vital Signs: Vital Signs Temperature 97.9 F 03/03/24 11:10 Pulse Rate 81 03/03/24 11:10 Respiratory Rate 16 03/03/24 11:10 Blood Pressure 163/74 H 03/03/24 11:10 Pulse Oximetry 97 03/03/24 11:10 Oxygen Delivery Method Room Air 03/03/24 11:10 Course Orders Ordered: ED Orders 03/03/24 11:20 Complete Blood Count AUTO DIFF Stat Comprehensive Metabolic Panel Stat Lipase Stat Magnesium Stat NT-proBNP (BNP-Adult 18+) Stat PTT Partial Thromboplastin Patrick Stat Prothrombin Time INR Stat Troponin & CK Cardiac Panel Stat 03/03/24 11:25 XR chest 1V Stat EKG-12 Lead Stat 03/03/24 14:00 Trop I [Troponin I] Stat Discontinued Medications Aspirin (Aspirin 81 Mg Chew Tab) 324 mg PO NOW ONE Stop: 03/03/24 11:26 Last Admin: 03/03/24 12:33 Dose: Not Given Documented By: RB Vital Signs Vital signs: Vital Signs - 8 hr 03/03/24 11:27 03/03/24 11:27 03/03/24 11:30 Pulse Rate 81 Respiratory Rate 35 H Blood Pressure 149/59 H 141/62 H Pulse Oximetry 95 03/03/24 11:30 03/03/24 12:00 03/03/24 12:00 Pulse Rate 70 79 Respiratory Rate 33 H 25 H Blood Pressure 126/74 Pulse Oximetry 96 95 03/03/24 12:12 03/03/24 12:12 03/03/24 12:30 Pulse Rate 72 Respiratory Rate Blood Pressure 125/58 L 115/57 L Pulse Oximetry 95 03/03/24 12:30 03/03/24 13:00 03/03/24 13:00 Pulse Rate 83 71 Respiratory Rate 25 H 26 H Blood Pressure 112/55 L Pulse Oximetry 94 95 03/03/24 13:30 03/03/24 13:30 03/03/24 14:00 Pulse Rate 72 Respiratory Rate 24 Blood Pressure 112/54 L 122/63 Pulse Oximetry 96 03/03/24 14:00 03/03/24 14:30 03/03/24 14:31 Pulse Rate 63 64 Respiratory Rate Blood Pressure 124/57 L Pulse Oximetry 95 97 03/03/24 14:31 Pulse Rate 59 L Respiratory Rate 21 Blood Pressure Pulse Oximetry 95 MDM - Syncope Lab Data 03/03/24 11:20 03/03/24 11:20 Labs: Lab Results 03/03/24 03/03/24 Range/Units 11:20 14:00 WBC 9.3 (4.5-11.0) X10^3/uL RBC 4.60 (4.5-5.9) X10^6/uL Hgb 14.4 (13.5-17.5) g/dL Hct 40.8 L (41-53) % MCV 88.8 (80-100) fL MCH 31.4 (26-34) PG MCHC 35.4 (30-36) % RDW 13.0 (11.6-14.8) % Plt Count 266 (150-400) X10^3/uL Neut % (Auto) 74.5 (50-75) % Lymph % (Auto) 17.0 L (25-40) % Vermillion % (Auto) 7.9 (3-14) % Eos % (Auto) 0.3 L (2-4) % Baso % (Auto) 0.3 (0-2) % Neut # (Auto) 6900 (2923-7949) /uL Lymph # (Auto) 1600 (6497-7489) /uL Vermillion # (Auto) 700 (0-900) /uL Eos # (Auto) 0 (0-450) /uL Baso # (Auto) 0 (0-100) /uL PT 11.2 (9.4-12.5) SECONDS INR 1.0 (0.9-1.3) APTT 28 (25.1-36.5) SECONDS Sodium 132 L (137-145) mmol/L Potassium 4.2 (3.4-5.1) mmol/L Chloride 103 (98-107) mmol/L Carbon Dioxide 19 L (22-32) mmol/L BUN 37 H (9-20) mg/dL Creatinine 0.91 (0.66-1.25) mg/dL Estimated GFR > 60 (>60) mL/min BUN/Creatinine Ratio 40.7 H (6-22) Glucose 147 H (80-110) mg/dL Calcium 9.7 (8.4-10.2) mg/dL Magnesium 1.8 (1.6-2.3) mg/dL Total Bilirubin 0.9 (0.2-1.3) mg/dL AST 26 (17-59) IU/L ALT 27 (<50) IU/L Alkaline Phosphatase 67 (38-126) U/L Total Creatine Kinase 65 (55-170) U/L Troponin I < 0.012 < 0.012 (0.01-0.034) ng/mL NT-Pro-B Natriuret Pep < 20 (<450) pg/mL Total Protein 7.7 (6.3-8.2) g/dL Albumin 4.5 (3.5-5.0) g/dL Globulin 3.2 (1.7-4.1) g/dL Albumin/Globulin Ratio 1.4 (1.0-2.8) Lipase 103 (23-300) U/L Imaging Data Chest x-ray: Radiologist's Impression: Close Chest X-Ray (Signed) Tomas Barboza - 03/03/24 Launch?Image [address] [address] XRay Report Signed Patient: Wayne Lopez MR#: [id number] : 1945 Acct:[id number] Age/Sex: 78 / M Date of Service: 03/03/24 Loc: ED Accession Number: [id number] Procedure: XR chest 1V Ordering Provider: Andre Plummer MD PROCEDURE: XR CHEST 1V INDICATIONS: chest pain TECHNIQUE: One view of the chest was acquired. COMPARISON: [facility], , XR CHEST 1V, 03/01/2024, 10:04. FINDINGS: Surgical changes and devices: None. Lungs and pleura: Lungs are clear. No pleural effusions or pneumothorax. Mediastinum: Mediastinal contours appear normal. Heart size is normal. Bones and chest wall: No suspicious bony lesions. Overlying soft tissues appear unremarkable. IMPRESSION: No acute cardiopulmonary abnormality is seen. Dictated by: Tomas Barboza M.D. on 03/03/2024 at 11:38 Approved by: Tomas Barboza M.D. on 03/03/2024 at 11:39 ECG Data Attestation: I personally reviewed and interpreted this ECG as follows: Interpretation: Normal sinus rhythm with rate of 65, no obvious ST segment elevation or depression changes. T-wave inversion lead 3. Upright T-waves lead 2. Flat T-waves appearance lead F. [place] 162, QRS 96, QTC 391. MDM Narrative Medical decision making narrative: 78-year-old male with near syncopal episode after having sat 20 minutes in home jacuzzi tub for his chronic low back pain, he was in standing position for shower, then subsequently felt like he might pass out. No associated cardiac or dysrhythmia or seizure-like symptoms. Screening EKG shows normal sinus rhythm, no obvious ST segment elevation changes. Initial troponin negative. Lab screening unremarkable. Patient feels better on arrival, continues to feel asymptomatic. We will repeat interval troponin. DDx consider vasodilation due to hot water immersion Jacuzzi tub, orthostatic hypotension, ACS, seizure, stroke, electrolyte disorder, anemia, other. Interval repeat troponin also negative. Patient remains asymptomatic. Advised to decrease time in Jacuzzi, or avoid Jacuzzi entirely, while he is still on vasoactive blood pressure medicines and diuretic medications. at bedside encouraging patient to avoid to oozy bathing entirely. Follow up with PCP advised next couple of days review symptoms, further workup as needed as an outpatient for now. Stable, improved, home with Critical Care Time Critical Care Time Total Critical Care Time: 31 Attestation: The high probability of a clinically significant, sudden or life threatening deterioration of the [cardiopulmonary] system(s) required my full and direct attention, intervention and personal management. The aggregate critical care time was [31] minutes. This time is in addition to time spent performing reported procedures but includes the following: [x] Data Review and interpretation [x] Patient assessment and monitoring of vital signs [x] Documentation [x] Medication orders and management Discharge Plan Departure Patient Disposition: Home Clinical Impression: Near syncope Activity Restrictions/Additional Instructions: Sensation of nearly passing out, after spending 20 minutes a new Jacuzzi tub for low back discomfort, although you were able to stand up and have a shower before he started feeling give might pass out. You do take multiple blood pressure related medication, and also diuretic medications. Reassuring triage vital signs. EKG and serial blood tests not suggestive of heart attack at this time. Electrolytes unremarkable. Symptoms all resolved prior to arrival, no recurrence of symptoms while in the emergency department. Tolerated ambulation well. Symptoms very suspicious for veno dilation due to Jacuzzi tub, in context of blood pressure medication and diuretic medication use. Consider avoidance of Jacuzzi tub, or at least perhaps only 5-10 minute intervals, with standing against something solid when leaving the tub. Follow up with your regular doctor for further testing as an outpatient for now. Return to this/nearest emergency department for any change worsening symptoms or any concerns prior Prescriptions: No Action atorvastatin 10 mg tablet 10 mg PO DAILY tamsulosin 0.4 mg capsule 0.4 mg PO DAILY lisinopril 30 mg tablet 30 mg PO DAILY dutasteride 0.5 mg capsule 0.5 mg PO DAILY furosemide [Lasix] 40 mg tablet 40 mg PO DAILY Qty: 3 0RF Referrals: Jose Hartman MD [Primary Care Provider] - Stand Alone Forms: Patient Portal/API
[2024-03-03 11:39] LABS: Add Manual Diff / Slide Review NO; Basophils Absolute Auto 0 /uL (0-100); Basophils Percent Auto 0.3 % (0-2); Eosinophils Absolute Auto 0 /uL (0-450); Eosinophils Percent Auto 0.3 % (2-4); Hematocrit 40.8 % (41-53); Hemoglobin 14.4 g/dL (13.5-17.5); Lymphocytes Absolute Auto 1600 /uL (1100-4500); Mean Corpuscular HGB Conc 35.4 % (30-36); Mean Corpuscular Hemoglobin 31.4 PG (26-34); Mean Corpuscular Volume 88.8 fL (80-100); Monocytes Absolute Auto 700 /uL (0-900); Monocytes Percent Auto 7.9 % (3-14); Neutrophils Absolute Auto 6900 /uL (1500-7000); Neutrophils Percent Auto 74.5 % (50-75); Platelet Count 266 X10^3/uL (150-400); White Blood Cell Count 9.3 X10^3/uL (4.5-11.0)
[2024-03-03 11:45] LABS: Prothrombin Time 11.2 SECONDS (9.4-12.5)
[2024-03-03 11:46] LABS: Alanine Aminotransferase 27 IU/L (<50); Albumin 4.5 g/dL (3.5-5.0); Albumin Globulin Ratio 1.4 (1.0-2.8); Alkaline Phosphatase 67 U/L (38-126); Aspartate Aminotransferase 26 IU/L (17-59); BUN Creatinine Ratio 40.7 (6-22); Bilirubin Total 0.9 mg/dL (0.2-1.3); Blood Urea Nitrogen 37 mg/dL (9-20); Calcium 9.7 mg/dL (8.4-10.2); Carbon Dioxide 19 mmol/L (22-32); Chloride 103 mmol/L (98-107); Creatine Kinase 65 U/L (55-170); Estimated Glomerular Filt Rate > 60 mL/min (>60); Globulin 3.2 g/dL (1.7-4.1); Glucose 147 mg/dL (80-110); HEMOLYSIS 21 (0-50); Lipase 103 U/L (23-300); Magnesium 1.8 mg/dL (1.6-2.3); Potassium 4.2 mmol/L (3.4-5.1); Sodium 132 mmol/L (137-145); Total Protein 7.7 g/dL (6.3-8.2)
[2024-03-03 11:47] LABS: PTT Partial Thromboplastin Tim 28 SECONDS (25.1-36.5)
[2024-03-03 11:58] LABS: NT-proBNP (BNP-Adult 18+) < 20 pg/mL (<450); Troponin I < 0.012 ng/mL (0.01-0.034)
[2024-03-03 14:31] LABS: Troponin I < 0.012 ng/mL (0.01-0.034)
== END 2024-03-03 14:52 | disposition home or self-care (01) ==
PROVIDERS: Emergency Provider Emergency Medicine; PCP Family Medicine
DX: R55 Syncope and collapse (principal); G89.29 Other chronic pain; R07.9 Chest pain, unspecified; I49.8 Other specified cardiac arrhythmias; Z79.01 Long term (current) use of anticoagulants
CPT/HCPCS: 71045; 80053; 82550; 83690; 83735; 83880; 84484; 85025; 85610; 85730; 93005; 93010; 99283; 99284

== ENCOUNTER → 2024-03-09 07:38 | Outpatient (CLI) | payer MEDICARE, OTHER, SELFPAY ==
--- NOTE | 2024-03-09 07:39 | DI.NM.S_ITS ---
PROCEDURE: NM EXERCISE TREADMILL NON NUC COMPARISON: None. INDICATIONS: BULLOCK FINDINGS: The patient exercised for 6 minutes and 32 seconds reaching 94% of maximum predicted heart rate. Appropriate BP response to exercise. 7.5METs, ELIECER -13%. No diagnostic ST changes, no angina, and ecotyp during exercise or recovery. IMPRESSION: Low risk, normal treadmill ECG only stress test with above average exercise tolerance (ELIECER -13%). Dictated by: Gladys Elizondo MD on 03/10/2024 at 15:17 Approved by: Gladys Elizondo MD on 03/10/2024 at 15:19
== END ==
PROVIDERS: PCP Family Medicine; Referring Provider Family Medicine; Visit Provider Family Medicine
DX: R06.09 Other forms of dyspnea (principal); I50.21 Acute systolic (congestive) heart failure
CPT/HCPCS: 93017

== ENCOUNTER → 2024-03-09 13:32 | Outpatient (CLI) | payer MEDICARE, OTHER, SELFPAY ==
--- NOTE | 2024-03-09 13:33 | DI.ECHO.S_ITS ---
[place] [facility]+ [facility] : : [address] : : [place] : : [id number] : : Phone: [phone] Echocardiogram Report + + :Name: BRENDAN MANRIQUE Study Date: 03/09/2024 Height: 70 in : :[facility] ReadingLocation: Weight: 235 lb : : Gender: Male BSA: 2.2 m2 : :: 1945 Age: 78 yrs BP: 135/71 mmHg: :Reason For Study: DYPSNEA ON EXERTION : :Ordering Physician: ELLEN : :NAA Performed By: Jairon Etienne : :Referring: NAA HUGHES : + + Interpretation Summary 1. The left ventricular contractility is normal. Estimate ejection fraction is greater than 55% with no segmental wall motion abnormalities. Mild concentric LVH. No diastolic dysfunction. 2. The right ventricle contractility is normal. 3. Moderate right ventricular enlargement present. Biatrial enlargement noted. The left ventricular cavity is of normal size. 4. Moderate pulmonic insufficiency. 5. Mild tricuspid regurgitation with estimated pulmonary systolic artery pressure of 32 mmHg. 6. No obvious intracardiac shunts. 7. No obvious intracardiac masses nor thrombi. 8. No hemodynamically significant pericardial effusion. 9. Low right-sided filling pressures. Conclusion: Normal biventricular systolic function with moderate right ventricular enlargement and moderate pulmonic insufficiency. Procedure: A two-dimensional transthoracic echocardiogram with color flow and Doppler was performed. The study quality was technically adequate. There is no prior echocardiogram noted for this patient. The heart rate ranged between 46-55 bpm during the study. The patient was in normal sinus rhythm during the exam. Left Ventricle: The left ventricle is normal in size. Left ventricular wall thickness is mildly increased. The ejection fraction is estimated to be 60- 65%. Right Ventricle: The right ventricle is moderately dilated. The right ventricular systolic function is normal. Atria: The left atrium is mildly dilated. The right atrium is mildly dilated. The interatrial septum grossly appears intact with no obvious evidence for an atrial septal defect. Mitral Valve: The mitral valve is normal. There is no mitral valve stenosis. There is trace mitral regurgitation. Aortic Valve: The aortic valve is trileaflet. There is no aortic valve stenosis. No aortic regurgitation is present. Tricuspid Valve: The tricuspid valve is normal. There is no tricuspid stenosis. There is mild tricuspid regurgitation. The right ventricular systolic pressure is estimated to be at least 31.8 mmHg based on an estimated right atrial pressure of 3 mm Hg. Pulmonic Valve: The pulmonic valve is not well visualized. There is no pulmonic valvular stenosis. There is moderate pulmonic regurgitation. Great Vessels: The aortic root is mildly dilated. The ascending aorta is mildly enlarged. The IVC is of normal diameter and collapses greater than 50% with a sniff. This suggests a low right atrial pressure of 3 mm Hg. Pericardium/ Pleura There is no pericardial effusion. There is no pleural effusion. MMode/2D Measurements & Calculations LVIDd: 5.1 cm LVOT diam: 2.2 cm LVIDs: 3.3 cm Ao root diam: 4.0 cm FS: 35.5 % asc Aorta Diam: 4.0 cm IVSd: 1.1 cm LVPWd: 1.1 cm LV saini. diameter/BSA (cm/m^2): 2.3 LV sys. diameter/BSA (cm/m^2): 1.5 LA A2 area: 26.2 cm2 RA long axis: 4.2 cm LA A4 area: 24.2 cm2 RA area: 17.9 cm2 LA length (vol): 6.7 cm RA vol: 64.7 ml LA vol: 80.1 ml RA : 28.9 ml/m2 LA vol index: 35.8 ml/m2 RVD1 (basal): 5.1 cm RVD2 (mid): 4.7 cm TAPSE: 3.3 cm Doppler Measurements & Calculations Ao V2 max: 202.6 cm/sec LVOT Max Silvano: 142.7 cm/sec Ao V2 mean: 133.3 cm/sec LV V1 max P.1 mmHg Ao max P.4 mmHg LV V1 VTI: 32.9 cm Ao mean P.3 mmHg SANIA(I,D): 3.0 cm2 Ao V2 VTI: 43.0 cm SANIA(V,D): 2.8 cm2 sev ratio: 0.77 SANIA indexed to BSA (cm^2/m^2): 1.3 MV E max silvano: 75.4 cm/sec TR max silvano: 268.5 cm/sec MV A max silvano: 80.4 cm/sec TR max P.8 mmHg MV E/A: 0.94 PA V2 max: 141.6 cm/sec Med Peak E' Silvano: 8.0 cm/sec PA V2 mean: 97.1 cm/sec E/E' med: 9.4 PA mean P.3 mmHg Lat Peak E' Silvano: 9.1 cm/sec PA pr(Accel): 39.6 mmHg E/E' lat: 8.3 E/e' average: 8.9 MV dec time: 0.24 sec SV(LVOT): 129.3 ml Reading Physician:
== END ==
PROVIDERS: PCP Family Medicine; Referring Provider Family Medicine; Visit Provider Family Medicine
DX: I07.1 Rheumatic tricuspid insufficiency (principal); I37.1 Nonrheumatic pulmonary valve insufficiency; I50.21 Acute systolic (congestive) heart failure; R06.09 Other forms of dyspnea; I77.810 Thoracic aortic ectasia; I77.89 Other specified disorders of arteries and arterioles
CPT/HCPCS: 93017; 93306

== ENCOUNTER → 2024-03-23 08:43 | Outpatient (CLI) | payer MEDICARE, OTHER, SELFPAY ==
--- NOTE | 2024-03-23 | DI.MRI.S_ITS ---
PROCEDURE: MR HEAD/BRAIN WO/W CON INDICATIONS: Labyrinthitis, bilateral TECHNIQUE: Noncontrast axial T1 spin echo, axial T2 fast spin echo, sagittal and axial FLAIR, coronal T2 fast spin echo, axial gradient echo, axial diffusion and ADC through the brain. After the administration of contrast, axial and coronal and sagittal T1 spin echo with fat saturation through the brain. COMPARISON: [facility], MR, MR STROKE, 10/08/2019, 12:55. [facility], CT, CT SOFT TISSUE NECK W CON, 06/28/2022, 12:11. FINDINGS: Image quality: Excellent. CSF spaces: Basal cisterns are patent. No extra-axial fluid collections. Ventricles are normal in size and shape. Brain: No midline shift. No intracranial bleeds or masses. No abnormal intracranial enhancement. There is cerebral volume loss for age. There is periventricular white matter chronic small vessel ischemic change. The brainstem appears normal. Diffusion-weighted images demonstrate no acute infarct. No chronic ischemic insults. Normal intravascular flow voids are present. Skull and face: Calvarial marrow is normal in signal. Orbits appear normal. Sinuses: Sinuses and mastoids appear clear. IMPRESSION: Unremarkable study, without concerning findings for labyrinthitis. No abnormal fluid can be seen within the mastoid air cells. No masses or abnormal enhancement can be seen. If further evaluation of the temporal bones is clinically desired, please consider a dedicated temporal bone CT for further evaluation. Dictated by: Patrick Polanco M.D. on 03/23/2024 at 10:45 Approved by: Patrick Polanco M.D. on 03/23/2024 at 10:49
== END ==
PROVIDERS: PCP Family Medicine; Referring Provider Family Medicine; Visit Provider Family Medicine
DX: H83.03 Labyrinthitis, bilateral (principal)
CPT/HCPCS: 70553; A9579

== ENCOUNTER → 2024-09-09 11:15 | Outpatient (CLI) | payer MEDICARE, OTHER, SELFPAY ==
--- NOTE | 2024-09-09 11:20 | DI.RAD.S_ITS ---
PROCEDURE: XR LUMBAR SPINE MIN 4V INDICATIONS: back pain TECHNIQUE: 5 views of the lumbar spine acquired, including flexion and extension views. COMPARISON: [facility], CR, XR LUMBAR SPINE 2-3V, 01/14/2022, 11:56. FINDINGS: Lumbar spine curvature and alignment: Normal. Bones: There are no osseous abnormalities. Disc spaces: Moderate L1-2, mild L2-3 and L3-4 and moderate L4-5 degenerative disc disease noted. There is moderate degenerative facet disease L4-5 and L5-S1. Soft tissues: No soft tissue swelling, calcification or mass. IMPRESSION: Degeneration-stable Dictated by: Lawrence Gil M.D. on 09/09/2024 at 13:07 Approved by: Lawrence Gil M.D. on 09/09/2024 at 13:08
== END ==
PROVIDERS: PCP Family Medicine; Referring Provider Family Medicine; Visit Provider Family Medicine
DX: M54.50 Low back pain, unspecified (principal); M51.369 Other intervertebral disc degeneration, lumbar region without mention of lumbar back pain or lower extremity pain
CPT/HCPCS: 72110

== ENCOUNTER 2025-05-03 20:54 | Emergency (ER) | payer MEDICARE, OTHER, SELFPAY ==
[2025-05-03] VITALS (8 sets, daily range): BP systolic 121–185; BP diastolic 70–97; PULSE 69–153; RESP 16–25; TEMP 36.8; O2SAT 94–96; BMI 32.8
--- NOTE | 2025-05-03 20:58 | DI.RAD.S_ITS ---
PROCEDURE: XR CHEST 1V
--- NOTE | 2025-05-03 21:03 | EKG_ITS ---
[facility]
[2025-05-03 21:09] LABS: Add Manual Diff / Slide Review NO; Hematocrit 43.9 % (41-53); Hemoglobin 15.0 g/dL (13.5-17.5); Lymphocytes Absolute Auto 2300 /uL (1100-4500); Mean Corpuscular HGB Conc 34.2 % (30-36); Mean Corpuscular Hemoglobin 29.9 PG (26-34); Mean Corpuscular Volume 87.6 fL (80-100); Platelet Count 223 X10^3/uL (150-400)
[2025-05-03 21:15] LABS: INR 0.9 (0.9-1.3); Prothrombin Time 10.4 SECONDS (9.4-12.5)
[2025-05-03 21:19] LABS: Alanine Aminotransferase 30 IU/L (<50); Albumin 4.7 g/dL (3.5-5.0); Albumin Globulin Ratio 1.4 (1.0-2.8); Alkaline Phosphatase 74 U/L (38-126); Blood Urea Nitrogen 26 mg/dL (9-20); Calcium 10.2 mg/dL (8.4-10.2); Carbon Dioxide 24 mmol/L (22-32); Chloride 105 mmol/L (98-107); Creatine Kinase 57 U/L (55-170); Estimated Glomerular Filt Rate > 60 mL/min (>60); Globulin 3.3 g/dL (1.7-4.1); Glucose 153 mg/dL (70-99); HEMOLYSIS 25 (0-50); Lipase 173 U/L (23-300); Magnesium 1.7 mg/dL (1.6-2.3); Potassium 3.8 mmol/L (3.4-5.1); Sodium 140 mmol/L (137-145); Total Protein 8.0 g/dL (6.3-8.2)
[2025-05-03 21:25] LABS: PTT Partial Thromboplastin Tim 27 SECONDS (25.1-36.5)
[2025-05-03 21:31] LABS: NT-proBNP (BNP-Adult 18+) 33 pg/mL (<450); Troponin I < 0.012 ng/mL (0.01-0.034)
--- NOTE | 2025-05-03 21:32 | EKG_ITS ---
[facility]
--- NOTE | 2025-05-03 22:15 | ED_ITS ---
HPI - Chest Pain
--- NOTE | 2025-05-03 22:15 | ED.CHESTPAIN ---
HPI - Chest Pain General Chief Complaint: Chest Pain Stated Complaint: Chest Pain Time Seen by Provider: 05/03/25 20:58 Source: patient and EMS Mode of arrival: EMS History of Present Illness HPI narrative: 79-year-old gentleman with a history of hyperlipidemia, congestive heart failure, hypertension, BPH who was sitting watching TV this evening and felt his his heart rate began to beat rapidly, he describes it is irregular at the time with some associated bilateral jaw pain. Had his next-door neighbor who is an EMT come over described him as pale and diaphoretic and recommended calling 911. He was not having any chest pain but arrives in the ER in atrial fibrillation with a rapid ventricular response. To his knowledge he has never had a previous episode of atrial fibrillation. He did take 325 mg of aspirin prior to arrival. No recent fevers, cough, chills, prior palpitations, abdominal pain, headache or nausea. Related Data Home Medications ?Medication ?Instructions ?Recorded ?Confirmed atorvastatin 10 mg tablet 10 mg PO DAILY 11/11/23 11/11/23 dutasteride 0.5 mg capsule 0.5 mg PO DAILY 11/11/23 11/11/23 lisinopril 30 mg tablet 30 mg PO DAILY blood pressure 11/11/23 11/11/23 tamsulosin 0.4 mg capsule 0.4 mg PO DAILY 11/11/23 11/11/23 Previous Rx's ?Medication ?Instructions ?Recorded furosemide 40 mg tablet (Lasix) 40 mg PO DAILY #3 tabs 03/01/24 apixaban 5 mg tablet 5 mg PO BID #60 tabs 05/03/25 Allergies Allergy/AdvReac Type Severity Reaction Status Date / Time No Known Drug Allergies Allergy Verified 05/03/25 20:58 Review of Systems Review of Systems Narrative: Pertinent positive and negative findings as per HPI Patient History Medical History (Updated 05/03/25 @ 22:37 by Kalee Isabel MD) BPH (benign prostatic hyperplasia) Hyperlipidemia CHF (congestive heart failure) Hypertension Family History Father Cancer Brother Cancer Social History household members: spouse Smoking Status: Never smoker Smoking Status: Never smoker alcohol intake frequency: a few times a month Exam Initial Vital Signs Initial Vital Signs: Vital Signs Pulse Rate 153 H 05/03/25 20:57 Respiratory Rate 25 H 05/03/25 20:57 Pulse Oximetry 96 05/03/25 20:57 General: Healthy appearing, in no acute distress. Able to give a complete and coherent history. Well-nourished well-developed HEENT: Moist mucous membranes, normal sclera with reactive pupils, Neck: No JVD, Respiratory: Lungs are clear to auscultation, no wheezing no rales no rhonchi. Full and symmetrical air movement Cardiac: Heart rate is in the 140-150 and irregular. I do not appreciate murmurs Abdomen: Soft, nontender, no rebound or guarding, no flank pain Skin: Warm and dry, no rashes Neurologic: Grossly neurologically intact with no obvious asymmetries or abnormalities Extremities: No trauma, well perfused Psych: Cooperative, appropriate insight and affect Course Orders Ordered: ED Orders 05/03/25 20:58 XR chest 1V Stat EKG-12 Lead Stat 05/03/25 21:00 Complete Blood Count AUTO DIFF Stat Comprehensive Metabolic Panel Stat Lipase Stat Magnesium Stat NT-proBNP (BNP-Adult 18+) Stat PTT Partial Thromboplastin Patrick Stat Prothrombin Time INR Stat Troponin & CK Cardiac Panel Stat 05/03/25 21:27 EKG-12 Lead Stat Discontinued Medications Aspirin (Aspirin 81 Mg Chew Tab) 324 mg PO NOW ONE Stop: 05/03/25 20:59 Vital Signs Vital signs: Vital Signs - 8 hr 05/03/25 20:57 05/03/25 20:58 05/03/25 21:00 Temperature 98.3 F Pulse Rate 153 H 153 H Respiratory Rate 25 H 18 Blood Pressure 183/82 H 185/97 H Pulse Oximetry 96 94 Oxygen Delivery Method Room Air 05/03/25 21:00 05/03/25 21:30 05/03/25 21:31 Temperature Pulse Rate 146 H 95 H Respiratory Rate 23 21 Blood Pressure 142/77 H Pulse Oximetry 96 95 Oxygen Delivery Method Room Air Room Air 05/03/25 21:31 05/03/25 22:00 05/03/25 22:00 Temperature Pulse Rate 93 H 69 Respiratory Rate 22 16 Blood Pressure 121/70 Pulse Oximetry 95 95 Oxygen Delivery Method Room Air Room Air MDM - Chest Pain Lab Data 05/03/25 21:00 05/03/25 21:00 Labs: Lab Results 05/03/25 Range/Units 21:00 WBC 7.4 (4.5-11.0) X10^3/uL RBC 5.01 (4.5-5.9) X10^6/uL Hgb 15.0 (13.5-17.5) g/dL Hct 43.9 (41-53) % MCV 87.6 (80-100) fL MCH 29.9 (26-34) PG MCHC 34.2 (30-36) % RDW 13.2 (11.6-14.8) % Plt Count 223 (150-400) X10^3/uL Neut % (Auto) 57.3 (50-75) % Lymph % (Auto) 30.8 (25-40) % [place] % (Auto) 10.3 (3-14) % Eos % (Auto) 1.1 L (2-4) % Baso % (Auto) 0.5 (0-2) % Neut # (Auto) 4200 (8588-8957) /uL Lymph # (Auto) 2300 (0666-5220) /uL [place] # (Auto) 800 (0-900) /uL Eos # (Auto) 100 (0-450) /uL Baso # (Auto) 0 (0-100) /uL PT 10.4 (9.4-12.5) SECONDS INR 0.9 (0.9-1.3) APTT 27 (25.1-36.5) SECONDS Sodium 140 (137-145) mmol/L Potassium 3.8 (3.4-5.1) mmol/L Chloride 105 (98-107) mmol/L Carbon Dioxide 24 (22-32) mmol/L BUN 26 H (9-20) mg/dL Creatinine 0.86 (0.66-1.25) mg/dL Estimated GFR > 60 (>60) mL/min BUN/Creatinine Ratio 30.2 H (6-22) Glucose 153 H (70-99) mg/dL Calcium 10.2 (8.4-10.2) mg/dL Magnesium 1.7 (1.6-2.3) mg/dL Total Bilirubin 0.5 (0.2-1.3) mg/dL AST 32 (17-59) IU/L ALT 30 (<50) IU/L Alkaline Phosphatase 74 (38-126) U/L Total Creatine Kinase 57 (55-170) U/L Troponin I < 0.012 (0.01-0.034) ng/mL NT-Pro-B Natriuret Pep 33 (<450) pg/mL Total Protein 8.0 (6.3-8.2) g/dL Albumin 4.7 (3.5-5.0) g/dL Globulin 3.3 (1.7-4.1) g/dL Albumin/Globulin Ratio 1.4 (1.0-2.8) Lipase 173 (23-300) U/L MDM Narrative Medical decision making narrative: CC: Rapid heart rate Complicating co-morbidities: No prior history of AFib, hypertension, hyperlipidemia, congestive heart failure Data collected from: patient Differential considered: AFib with rapid ventricular response, SVT, V-tach, acute coronary syndrome, sinus tach Exam documented above, pertinent findings include: Heart rate is rapid and irregular however he is alert, appropriate, there was no current diaphoresis lungs are clear. Lab Test results independently reviewed as above. Pertinent findings: CBC is unremarkable Chemistries show appropriate renal function, blood sugar at 133. Troponin is undetected BNP is unremarkable Lipase is normal Independently reviewed EKG: Initial EKG shows atrial fibrillation with rapid ventricular response at a rate of 37. Nonspecific STT wave changes. At approximately 930 patient spontaneously converted to sinus rhythm at a rate of 88. No acute ischemic change Imaging studies independently reviewed: Chest x-ray is unrevealing Treatments: 5 mg of apixaban Discussion: 79-year-old gentleman with seemingly 1st episode of atrial fibrillation lasting approximately 2 hours with self resolution in the emergency department without additional intervention. Workup is unremarkable. No evidence of acute coronary syndrome, anemia, congestive heart failure. Thyroid studies have been added. His chads 2 score is 3 which suggests a DOAC. He is started on apixaban a prescription will be written. I have recommended follow up with his primary care physician to consider echocardiogram and possibility of cardiology referral. He is currently hemodynamically stable, back in sinus rhythm and safe for discharge home Discharge Plan Departure Patient Disposition: Home Clinical Impression: AF (paroxysmal atrial fibrillation) Instructions: DI for Atrial Fibrillation Activity Restrictions/Additional Instructions: Thank you for coming in today You had an episode of atrial fibrillation with rapid ventricular response. Your body spontaneously converted to sinus rhythm after approximately 2 hours. Your workup in the emergency department was unremarkable. There was no sign of acute heart failure, acute coronary syndrome, significant anemia. Thyroid studies has been added on and you can follow up with your primary care doctor to review those. Your risk for a stroke with paroxysmal atrial fibrillation is enough that I am going to suggest starting a blood thinner, apixaban/Eliquis. This is 5 mg by mouth morning and night. You were given you 1st dose in the emergency department and prescribed in electronically transmitted to [facility] in [facility] tomorrow Please do schedule follow up appointment with Dr. Hartman If you find that you are getting worse or develop any new symptoms, please feel free to return to the emergency department for further evaluation. Prescriptions: New apixaban 5 mg tablet 5 mg PO BID Qty: 60 0RF No Action atorvastatin 10 mg tablet 10 mg PO DAILY tamsulosin 0.4 mg capsule 0.4 mg PO DAILY lisinopril 30 mg tablet 30 mg PO DAILY dutasteride 0.5 mg capsule 0.5 mg PO DAILY furosemide [Lasix] 40 mg tablet 40 mg PO DAILY Qty: 3 0RF Referrals: Jose Hartman MD [Primary Care Provider, Family Practice] Stand Alone Forms: Patient Portal/API
[2025-05-03] MEDS: APIXABAN 5 MG TABLET PO (22:45)
[2025-05-03 23:34] LABS: TSH w/ Reflex to FT4 0.47 uIU/mL (0.47-4.68)
== END 2025-05-03 22:58 | disposition home or self-care (01) ==
PROVIDERS: Emergency Provider Emergency Medicine; PCP Family Medicine
DX: I48.0 Paroxysmal atrial fibrillation (principal); I50.9 Heart failure, unspecified; I10 Essential (primary) hypertension
CPT/HCPCS: 71045; 80053; 82550; 83690; 83735; 83880; 84443; 84484; 85025; 85610; 85730; 93005; 99283; 99284

== ENCOUNTER → 2025-05-13 14:16 | Outpatient (CLI) | payer MEDICARE, OTHER, SELFPAY ==
--- NOTE | 2025-05-13 14:22 | DI.NM.S_ITS ---
PROCEDURE: NM KEYA PERF SPECT R&S PHARM Rest and pharmacological stress myocardial perfusion SPECT with gated imaging and ejection fraction RADIOPHARMACEUTICAL: 27.4mCi Tc-99m tetrafosmin IV at rest and 25mCi Tc-99m tetrafosmin IV at peak effect of pharmacological stress. Ukn-zam-vohqcivn was performed. INDICATIONS: routine TECHNIQUE: Radiopharmaceutical was injected at peak stress test, and also at rest. SPECT images were obtained. SPECT myocardial perfusion images were displayed in short axis, horizontal long axis, and vertical long axis views. Gated images were reviewed using [employer] software. COMPARISON: None. CARDIAC STRESS: A pharmacologic stress test was performed under the supervision of an attending staff, using an infusion of lexiscan 0.4mg IV X1. Hemodynamic data: There is normal blood pressure and heart rate response to pharmacologic stress. Symptoms: The patient denied anginal chest pain. Aminophylline: none EKG: No diagnostic changes of ischemia; rare PACs present. FINDINGS: Raw data: There is good myocardial uptake of radiotracer. No significant motion artifacts. Shbc-fz-wjkgf ratio is 0.28 (normal is less than 0.38 for tetrafosmin tracer). Left ventricle function: Gated images demonstrate normal left ventricular wall thickening. No segmental wall motion abnormalities. No transient ischemic dilation; TID is 0.95 (normal less than 1.3). Left ventricle resting end diastolic volume is 138mL. Left ventricle stress ejection fraction is 75%; normal range is above 45%. Myocardial perfusion: There is normal distribution of activity in the right and left ventricular myocardium. No fixed or reversible perfusion defects. SSS 0. IMPRESSION: Low risk, normal pharm nuclear stress test from inducible ischemia standpoint. 1) No perfusion evidence of ischemia or infarction. 2) Normal left ventricular size, wall motion, and systolic function (EF post stress 75%) 3) No angina during the study. 4) No diagnostic ST changes during exercise or recovery. 5) Mildly reduced exercise tolerance (7METs, ELIECER +26%). Appropriate BP response to exercise. 6) Study switched to lexiscan as target heart rate not achieved with exercise- patient took metoprolol within 24hrs of the study. 7) No prior nuclear stress test available for comparison. Dictated by: Gladys Elizondo MD on 05/19/2025 at 15:03 Approved by: Gladys Elizondo MD on 05/19/2025 at 15:10
== END ==
PROVIDERS: PCP Family Medicine; Referring Provider Family Medicine; Visit Provider Family Medicine
DX: I48.0 Paroxysmal atrial fibrillation (principal); R07.9 Chest pain, unspecified
CPT/HCPCS: 78452; 93017; A9502; J2785

== ENCOUNTER → 2025-05-19 08:02 | Outpatient (CLI) | payer MEDICARE, OTHER, SELFPAY ==
--- NOTE | 2025-05-19 08:03 | DI.ECHO.S_ITS ---
[place] [facility]+ [facility] : : [id number] : [place] : : [id number] : : Phone: [phone] Echocardiogram Report + + :Name: BRENDAN MANRIQUE Study Date: 05/19/2025 Height: 71 in : :[facility] ReadingLocation: Weight: 234 lb : : Gender: Male BSA: 2.3 m2 : :: 1945 Age: 79 yrs BP: 146/70 mmHg: :Reason For Study: PAF, Chest pain : :Ordering Physician: ELLEN, : :NAA Performed By: Eber Whitaker : :Referring: NAA HUGHES : + + Interpretation Summary The patient was in sinus bradycardia with heart rates between 50-55 bpm during the exam. The right ventricle is mildly dilated. The right ventricular systolic function is normal. The ejection fraction is estimated to be 60-65%. Diastolic function was not assessed. The right ventricle is mildly dilated. The right ventricular systolic function is normal. No significant valvular abnormalities. Pulmonary artery pressures cannot be estimated because of the lack of a measurable TR jet velocity but the IVC suggests a CVP of around 3 mmHg. No significant change compared to prior study 03/09/2024. Procedure: A two-dimensional transthoracic echocardiogram with color flow and Doppler was performed. The study quality was technically adequate. Comparison is made with the echocardiogram of 03/09/2024. The patient was in sinus bradycardia with heart rates between 50-55 bpm during the exam. Left Ventricle: The left ventricle is normal in size. There is mild concentric left ventricular hypertrophy. The ejection fraction is estimated to be 60-65%. Diastolic function was not assessed. Right Ventricle: The right ventricle is mildly dilated. The right ventricular systolic function is normal. Atria: The left atrial size is normal. Right atrial size is normal. There is no Doppler evidence for an interatrial shunt. Mitral Valve: There is mild mitral annular calcification. The mitral valve leaflets appear to open well. There is no mitral valve stenosis. There is trace mitral regurgitation. Aortic Valve: The aortic valve is trileaflet. The aortic valve opens well. There is no aortic valve stenosis. No aortic regurgitation is present. Tricuspid Valve: The tricuspid valve is not well visualized, but is grossly normal. There is trace tricuspid regurgitation. Pulmonary artery pressures cannot be estimated because of the lack of a measurable TR jet velocity but the IVC suggests a CVP of around 3 mmHg. Pulmonic Valve: The pulmonic valve is not well seen, but is grossly normal. There is mild to moderate pulmonic regurgitation. Great Vessels: The aortic root is normal size. The ascending aorta is normal in size. The aortic arch could not be visualized. The pulmonary is not well visualized. The IVC is of normal diameter and collapses greater than 50% with a sniff. This suggests a low right atrial pressure of 3 mm Hg. Pericardium/ Pleura There is no pericardial effusion. MMode/2D Measurements & Calculations LVIDd: 5.0 cm LVOT diam: 2.3 cm LVIDs: 3.3 cm Ao root diam: 3.8 cm FS: 33.5 % asc Aorta Diam: 4.1 cm IVSd: 1.1 cm LVPWd: 1.1 cm LV saini. diameter/BSA (cm/m^2): 2.2 LV sys. diameter/BSA (cm/m^2): 1.5 LA A2 area: 21.6 cm2 RA long axis: 5.6 cm LA A4 area: 20.4 cm2 RA area: 13.2 cm2 LA length (vol): 5.9 cm RA vol: 26.4 ml LA vol: 63.7 ml RA : 11.7 ml/m2 LA vol index: 28.2 ml/m2 IVC diam: 2.0 cm RVD1 (basal): 3.5 cm RVD2 (mid): 3.0 cm TAPSE: 2.4 cm Doppler Measurements & Calculations Ao V2 max: 191.0 cm/sec LVOT Max Silvano: 141.3 cm/sec Ao V2 mean: 125.4 cm/sec LV V1 max P.0 mmHg Ao max P.6 mmHg LV V1 VTI: 28.1 cm Ao mean P.3 mmHg SANIA(I,D): 2.9 cm2 Ao V2 VTI: 39.4 cm SANIA(V,D): 3.0 cm2 sev ratio: 0.71 SANIA indexed to BSA (cm^2/m^2): 1.3 MV E max silvano: 100.7 cm/sec TR max silvano: 280.0 cm/sec MV A max silvano: 65.8 cm/sec TR max P.4 mmHg MV E/A: 1.5 PA V2 max: 141.0 cm/sec MV dec time: 0.22 sec PA V2 mean: 87.8 cm/sec PA mean P.7 mmHg PA pr(Accel): 45.6 mmHg SV(LVOT): 112.5 ml Reading Physician:09:31 AM
== END ==
LOC: ECHO 08:02
PROVIDERS: PCP Family Medicine; Referring Provider Family Medicine; Visit Provider Family Medicine
DX: I34.81 Nonrheumatic mitral (valve) annulus calcification (principal); I48.0 Paroxysmal atrial fibrillation
CPT/HCPCS: 93306

== ENCOUNTER 2025-06-10 13:58 | Emergency (ER) | payer MEDICARE, OTHER, SELFPAY ==
[2025-06-10] VITALS (11 sets, daily range): BP systolic 123–161; BP diastolic 58–98; PULSE 60–137; RESP 18–23; TEMP 36.5; O2SAT 95–98; BMI 32.8
--- NOTE | 2025-06-10 14:18 | EKG_ITS ---
[place] [id number] [address] Test Date: 2025-06-10 Pat Name: Wayne Lopez Department: Room: Gender: Male Personal Lines Account Manager: ramyjonojerfrances : 1945 Requested By: Order Number: [id number] Reading MD: Lawrence White MD Measurements Intervals [place] Rate: 135 P: ND: QRS: 5 QRSD: 104 T: -47 QT: 314 QTc: 471 Interpretive Statements Atrial fibrillation with rapid ventricular response Possible Inferior infarct , age undetermined Electronically Signed On 06-11-2025 10:17:25 PST by Lawrence White MD
--- NOTE | 2025-06-10 14:23 | DI.RAD.S_ITS ---
PROCEDURE: XR CHEST 1V INDICATIONS: Chest Pain TECHNIQUE: One view of the chest was acquired. COMPARISON: [facility], CR, XR CHEST 1V, 05/03/2025, 20:56. FINDINGS: Surgical changes and devices: None. Lungs and pleura: Lungs are clear. No pleural effusions or pneumothorax. Mediastinum: Mediastinal contours appear normal. Heart size is enlarged. Bones and chest wall: No suspicious bony lesions. Overlying soft tissues appear unremarkable. IMPRESSION: No acute pulmonary process. Dictated by: Lachelle Griffith M.D. on 06/10/2025 at 15:11 Approved by: Lachelle Griffith M.D. on 06/10/2025 at 15:12
--- NOTE | 2025-06-10 14:43 | EKG_ITS ---
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
[2025-06-10 14:44] LABS: Add Manual Diff / Slide Review NO; Hematocrit 43.3 % (41-53); Hemoglobin 15.0 g/dL (13.5-17.5); Lymphocytes Absolute Auto 1500 /uL (1100-4500); Mean Corpuscular HGB Conc 34.6 % (30-36); Mean Corpuscular Hemoglobin 30.3 PG (26-34); Mean Corpuscular Volume 87.5 fL (80-100); Platelet Count 186 X10^3/uL (150-400)
--- NOTE | 2025-06-10 14:45 | PC.NURSE ---
1435: This RN is telling provider Mank about the patient when we both notice on the monitor that the patient appears to have self-converted. RT called for repeat EKG.
[2025-06-10 14:53] LABS: INR 1.0 (0.9-1.3); Prothrombin Time 10.9 SECONDS (9.4-12.5)
[2025-06-10] MEDS: SODIUM CHLORIDE 0.9% 500 ML 1000 ML IV (14:53)
[2025-06-10 14:55] LABS: PTT Partial Thromboplastin Tim 27 SECONDS (25.1-36.5)
[2025-06-10 15:07] LABS: Alanine Aminotransferase 22 IU/L (<50); Albumin 4.9 g/dL (3.5-5.0); Albumin Globulin Ratio 1.5 (1.0-2.8); Alkaline Phosphatase 82 U/L (38-126); Blood Urea Nitrogen 23 mg/dL (9-20); Calcium 10.0 mg/dL (8.4-10.2); Carbon Dioxide 20 mmol/L (22-32); Chloride 108 mmol/L (98-107); Creatine Kinase 48 U/L (55-170); Estimated Glomerular Filt Rate > 60 mL/min (>60); Globulin 3.3 g/dL (1.7-4.1); Glucose 144 mg/dL (70-99); HEMOLYSIS 30 (0-50); Lipase 139 U/L (23-300); Magnesium 1.9 mg/dL (1.6-2.3); Potassium 3.7 mmol/L (3.4-5.1); Sodium 141 mmol/L (137-145); Total Protein 8.2 g/dL (6.3-8.2)
[2025-06-10 15:19] LABS: NT-proBNP (BNP-Adult 18+) 36 pg/mL (<450); Troponin I < 0.012 ng/mL (0.01-0.034)
--- NOTE | 2025-06-10 15:43 | ED.ARRPALP ---
HPI - Arrhythmia/Palpitations General Chief Complaint: Arrhythmia/Palpitations Stated Complaint: afib Time Seen by Provider: 06/10/25 14:32 Source: patient Mode of arrival: Ambulatory History of Present Illness HPI narrative: 79-year-old male patient with a history of hypertension, dyslipidemia and recently diagnosed paroxysmal atrial fibrillation who was diagnosed 6 weeks ago with rapid AFib and was placed on metoprolol, 25 mg daily and Pradaxa. He stopped taking his Pradaxa and with his cardiologists agreement. The metoprolol when his heart rate was in the 40s. Today he had rapid atrial fibrillation with palpitations at about 1:00 p.m.. By the time he got to triage here in the ER his symptoms had stopped. He has been without symptoms since then. Related Data Home Medications ?Medication ?Instructions ?Recorded ?Confirmed atorvastatin 10 mg tablet 10 mg PO DAILY 11/11/23 11/11/23 dutasteride 0.5 mg capsule 0.5 mg PO DAILY 11/11/23 11/11/23 lisinopril 30 mg tablet 30 mg PO DAILY blood pressure 11/11/23 11/11/23 tamsulosin 0.4 mg capsule 0.4 mg PO DAILY 11/11/23 11/11/23 Previous Rx's ?Medication ?Instructions ?Recorded furosemide 40 mg tablet (Lasix) 40 mg PO DAILY #3 tabs 03/01/24 apixaban 5 mg tablet 5 mg PO BID #60 tabs 05/03/25 metoprolol succinate 25 mg 12.5 mg (1/2 x 25 mg) PO DAILY 30 06/10/25 tablet,extended release 24 hr days #15 tabs Allergies Allergy/AdvReac Type Severity Reaction Status Date / Time No Known Drug Allergies Allergy Verified 06/10/25 14:18 Review of Systems Review of Systems ROS Unobtainable: All systems reviewed & are unremarkable except as noted in HPI and below Cardiovascular Cardiovascular: Reports as per HPI Patient History Medical History (Updated 06/10/25 @ 16:26 by Macho Hardy MD) BPH (benign prostatic hyperplasia) Hyperlipidemia CHF (congestive heart failure) Hypertension Family History Father Cancer Brother Cancer Social History household members: spouse Smoking Status: Never smoker Smoking Status: Never smoker alcohol intake frequency: a few times a month Exam Narrative Exam Narrative: General: Alert and conversant. No distress. Appears well nourished and well hydrated Neck: No tenderness or adenopathy. No meningismus. No JVD Lungs: Clear to auscultation with good air movement. No wheezing, rales or rhonchi. No respiratory distress Cardiac: Regular rate and rhythm with no appreciable murmur or gallop Abdomen: Soft, nontender with no distention or masses. Normal bowel sounds. No rebound or guarding Neuro: Alert and oriented. Cranial nerves, motor, sensory and cerebellar all grossly intact. No focal deficit Skin: Warm and normal color. No rashes Psychological: Normal affect and interaction. No evidence of delusion or psychosis. Normal mood. Initial Vital Signs Initial Vital Signs: Vital Signs Pulse Rate 137 H 06/10/25 14:14 Pulse Oximetry 97 06/10/25 14:14 Course Orders Ordered: ED Orders 06/10/25 14:23 XR chest 1V Stat EKG-12 Lead Stat 06/10/25 14:33 Complete Blood Count AUTO DIFF Stat Comprehensive Metabolic Panel Stat Lipase Stat Magnesium Stat NT-proBNP (BNP-Adult 18+) Stat PTT Partial Thromboplastin Patrick Stat Prothrombin Time INR Stat Troponin & CK Cardiac Panel Stat EKG-12 Lead Stat Discontinued Medications Diltiazem HCl (Diltiazem 25 Mg/5 Ml Sdv) 10 mg IV NOW ONE Stop: 06/10/25 14:33 Sodium Chloride (Normal Saline 0.9%) 500 mls @ 1,000 mls/hr IV BOLUS ONE Stop: 06/10/25 15:02 Last Infusion: 06/10/25 16:00 Dose: Infused Documented By: Admin: 06/10/25 14:53 Dose: 1,000 mls/hr Documented By: JEWEL Metoprolol Succinate (Metoprolol Er 25 Mg Tablet) 12.5 mg PO NOW ONE Stop: 06/10/25 16:22 Last Admin: 06/10/25 16:46 Dose: 12.5 mg Documented By: JEWEL Vital Signs Vital signs: Vital Signs - 8 hr 06/10/25 15:30 06/10/25 15:30 06/10/25 16:00 Pulse Rate 60 60 Respiratory Rate 22 23 Blood Pressure 138/65 Pulse Oximetry 97 96 06/10/25 16:00 06/10/25 16:30 06/10/25 16:30 Pulse Rate 63 Respiratory Rate 22 Blood Pressure 128/62 127/61 Pulse Oximetry 96 06/10/25 16:46 06/10/25 16:52 Pulse Rate 61 Respiratory Rate 18 Blood Pressure 127/61 Pulse Oximetry MDM - Arrhythmia/Palpitations Lab Data Attestation: I reviewed the patient's lab results. 06/10/25 14:33 06/10/25 14:33 Labs: Lab Results 06/10/25 Range/Units 14:33 WBC 5.8 (4.5-11.0) X10^3/uL RBC 4.95 (4.5-5.9) X10^6/uL Hgb 15.0 (13.5-17.5) g/dL Hct 43.3 (41-53) % MCV 87.5 (80-100) fL MCH 30.3 (26-34) PG MCHC 34.6 (30-36) % RDW 13.6 (11.6-14.8) % Plt Count 186 (150-400) X10^3/uL Neut % (Auto) 63.1 (50-75) % Lymph % (Auto) 25.3 (25-40) % [place] % (Auto) 10.1 (3-14) % Eos % (Auto) 0.9 L (2-4) % Baso % (Auto) 0.6 (0-2) % Neut # (Auto) 3600 (3478-2674) /uL Lymph # (Auto) 1500 (3161-0995) /uL [place] # (Auto) 600 (0-900) /uL Eos # (Auto) 100 (0-450) /uL Baso # (Auto) 0 (0-100) /uL PT 10.9 (9.4-12.5) SECONDS INR 1.0 (0.9-1.3) APTT 27 (25.1-36.5) SECONDS Sodium 141 (137-145) mmol/L Potassium 3.7 (3.4-5.1) mmol/L Chloride 108 H (98-107) mmol/L Carbon Dioxide 20 L (22-32) mmol/L BUN 23 H (9-20) mg/dL Creatinine 0.84 (0.66-1.25) mg/dL Estimated GFR > 60 (>60) mL/min BUN/Creatinine Ratio 27.4 H (6-22) Glucose 144 H (70-99) mg/dL Calcium 10.0 (8.4-10.2) mg/dL Magnesium 1.9 (1.6-2.3) mg/dL Total Bilirubin 0.9 (0.2-1.3) mg/dL AST 30 (17-59) IU/L ALT 22 (<50) IU/L Alkaline Phosphatase 82 (38-126) U/L Total Creatine Kinase 48 L (55-170) U/L Troponin I < 0.012 (0.01-0.034) ng/mL NT-Pro-B Natriuret Pep 36 (<450) pg/mL Total Protein 8.2 (6.3-8.2) g/dL Albumin 4.9 (3.5-5.0) g/dL Globulin 3.3 (1.7-4.1) g/dL Albumin/Globulin Ratio 1.5 (1.0-2.8) Lipase 139 (23-300) U/L Imaging Data Chest x-ray: My Impression: No acute disease or infiltrate. No edema ECG Data Attestation: I personally reviewed and interpreted this ECG as follows: (Atrial fibrillation with RVR at a rate of 135. Inferior Q-waves. ) MDM Narrative Medical decision making narrative: Patient presented with atrial fibrillation with RVR and symptoms that have been going on for about 2 hours. However he converted spontaneously to sinus rhythm with no intervention. He remained in sinus rhythm for the remainder of the ER visit. Lab work is reassuring. Patient was advised to restart his Pradaxa which he already did today. Also we will put him back on 12.5 mg of metoprolol for rate control. He will contact Cardiology for close follow up. Return to the ER for any worsening symptoms Discharge Plan Departure Patient Disposition: Home Clinical Impression: Paroxysmal atrial fibrillation with rapid ventricular response Instructions: DI for Atrial Fibrillation Activity Restrictions/Additional Instructions: Plan: Resume Pradaxa. Also restart metoprolol at 12.5 mg daily. Contact your arboriculture instructor to discuss the ER visit and their recommendations for follow-up. Return to the ER if worse. Prescriptions: New metoprolol succinate 25 mg tablet extended release 24 hr 12.5 mg PO DAILY 30 Days Qty: 15 0RF No Action atorvastatin 10 mg tablet 10 mg PO DAILY tamsulosin 0.4 mg capsule 0.4 mg PO DAILY lisinopril 30 mg tablet 30 mg PO DAILY dutasteride 0.5 mg capsule 0.5 mg PO DAILY furosemide [Lasix] 40 mg tablet 40 mg PO DAILY Qty: 3 0RF apixaban 5 mg tablet 5 mg PO BID Qty: 60 0RF Referrals: Jose Hartman MD [Primary Care Provider, Family Practice] Stand Alone Forms: Patient Portal/API
[2025-06-10] MEDS: METOPROLOL ER 25 MG TABLET 12.5 MG PO (16:46)
== END 2025-06-10 16:55 | disposition home or self-care (01) ==
PROVIDERS: Emergency Medicine; Emergency Provider Emergency Medicine; PCP Family Medicine
DX: I48.0 Paroxysmal atrial fibrillation (principal); I10 Essential (primary) hypertension
CPT/HCPCS: 36415; 71045; 80053; 82550; 83690; 83735; 83880; 84484; 85025; 85610; 85730; 93005; 96360; 99284; J7040